=== PATIENT | female | born 1975 | race Caucasian/White ===

== ENCOUNTER 2024-10-02 08:26 | Inpatient (IN) | payer MEDICAID, OTHER ==
[~2024-10-02] VITALS: Ht 165.1 cm; Wt 128.4 kg
--- NOTE | 2024-10-02 09:58 | ED.PDOC ---
History of Present Illness HPI Comments 48-year-old female with PMHx HIV, HTN, CKF (3) presents with a chief complaint of cough x 2 months. Patient reports that she has had a persistent cough for the past x 2 months, and did not see a physician in that time due to being in halfway. Patient reports that in halfway she was only given cough drops for her cough, but not an evaluation. No other symptoms or modifying factors present at this time. 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 AND ROLLING SUPERVISOR Hx Family History Family History: Reviewed,noncontributory to illness Social History Smoker: Non-Smoker Alcohol: Denies ETOH Use Drugs: Denies Drug Use Lives In: Home Constitutional: denies: chills, diaphoresis, fatigue, fever, malaise, sweats, weakness, others EENTM: denies: blurred vision, double vision, ear bleeding, ear discharge, ear drainage, ear pain, ear ringing, eye pain, eye redness, hearing loss, mouth pain, mouth swelling, nasal discharge, nose bleeding, nose congestion, nose pain, photophobia, tearing, throat pain, throat swelling, voice changes, others Respiratory: reports: cough; denies: hemoptysis, orthopnea, SOB at rest, shortness of breath, SOB with excertion, stridor, wheezing, others Cardiovascular: denies: chest pain, dizzy spells, diaphoresis, Dyspnea on exertion, edema, irregular heart beat, left arm pain, lightheadedness, palpitations, PND, syncope, others Gastrointestinal: denies: abdomen distended, abdominal pain, blood streaked bowels, constipated, diarrhea, dysphagia, difficulty swallowing, hematemesis, melena, nausea, poor appetite, poor fluid intake, rectal bleeding, rectal pain, vomiting, others Genitourinary: denies: abnormal vagina bleeding, burning, dyspareunia, dysuria, flank pain, frequency, hematuria, incontinence, pain, , vagina discharge, urgency, others Neurological: denies: dizziness, fainting, headache, left sided numbness, left sided weakness, numbness, paresthesia, pre-existing deficit, right sided numbness, right sided weakness, seizure, speech problems, tingling, tremors, weakness, others Musculoskeletal: denies: back pain, gout, joint pain, joint swelling, muscle pain, muscle stiffness, neck pain, others Integumetry: denies: bruises, change in color, change in hair/nails, dryness, laceration, lesions, lumps, rash, wounds, others Allergic/Immunocompromised: denies: Difficulty Healing, Frequent Infections, Hives, Itching, others Hematologic/Lymphatic: denies: anemia, blood clots, easy bleeding, easy bruising, swollen glands, others Endocrine: denies: excessive hunger, excessive sweating, excessive thirst, excessive urination, flushing, intolerance to cold, intolerance to heat, unexplained weight gain, unexplained weight loss, others Psychiatric: denies: anxiety, bipolar disorder, depression, hopeless, panic disorder, schizophrenia, sleepless, suicidal, others All Other Systems: Reviewed and Negative Physical Exam General Appearance: Moderate Distress, Obese HEENT: Normal ENT Inspection, Pharynx Normal, TMs Normal Neck: Full Range of Motion, Non-Tender, Normal, Normal Inspection Respiratory: Chest Non-Tender, Lungs Clear, No Accessory Muscle Use, No Respiratory Distress, Normal Breath Sounds Cardiovascular: No Edema, No JVD, No Murmur, No Gallop, Tachycardia Breast Exam: Deferred Gastrointestinal: No Organomegaly, Non Tender, No Pulsatile Mass, Normal Bowel Sounds, Soft Genitalia: Deferred Pelvic: Deferred Rectal: Deferred Extremities: No calf tenderness, Normal capillary refill, Pedal edema Musculoskeletal : Apperance: Normal 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 Was a procedure done?: No Differential Dx Considerations may include: PE, generalized weakness, dehydration, pneumonia X-Ray, Labs, Meds, VS Vital Signs Date Time Temp Pulse Resp B/P (MAP) Pulse Ox O2 Delivery O2 Flow Rate FiO2 10/02/24 09:23 70 10/02/24 09:23 98.9 70 16 138/92 (107) 97 98.9 10/02/24 08:52 97.6 83 16 158/98 (118) 97 Lab Test 10/02/24 09:50 Range/Units White Blood Count 9.3 4.4-10.8 10^3/uL Red Blood Count 4.25 4.0-5.20 10^6/uL Hemoglobin 10.8 L 12.2-16.2 g/dL Hematocrit 33.0 L 36.0-46.0 % Mean Corpuscular Volume 77.8 L 80.0-100.0 fL Mean Corpuscular Hemoglobin 25.4 L 28.0-32.0 pg Mean Corpuscular Hemoglobin Concent 32.7 32.0-36.0 g/dL Red Cell Distribution Width 18.6 H 11.8-14.3 % Platelet Count 314 140-450 10^3/uL Mean Platelet Volume 8.2 6.9-10.8 fL Neutrophils (%) (Auto) 65.7 37.0-80.0 % Lymphocytes (%) (Auto) 20.0 10.0-50.0 % Monocytes (%) (Auto) 10.8 0.0-12.0 % Eosinophils (%) (Auto) 2.8 0.0-7.0 % Basophils (%) (Auto) 0.7 0.0-2.0 % Neutrophils # (Auto) 6.1 1.6-8.6 10 ^3/uL Lymphocytes # (Auto) 1.9 0.4-5.4 10 ^3/uL Monocytes # (Auto) 1.0 0-1.3 10 ^3/uL Eosinophils # (Auto) 0.3 0-0.8 10 ^3/uL Basophils # (Auto) 0.1 0-0.2 10 ^3/uL Nucleated Red Blood Cells 0.0 % D-Dimer, Quantitative 4.09 H 0.0-0.49 mg/L FEU Sodium Level 139 136-145 mmol/L Potassium Level 4.6 3.5-5.1 mmol/L Chloride Level 106 98-107 mmol/L Carbon Dioxide Level 25 20-31 mmol/L Anion Gap 8 5-15 Blood Urea Nitrogen 13 9-23 mg/dL Creatinine 1.08 H 0.550-1.02 mg/dL Glomerular Filtration Rate Calc 63 >90 mL/min BUN/Creatinine Ratio 12.0 10.0-20.0 Serum Glucose 87 74-106 mg/dL Calcium Level 9.5 8.7-10.4 mg/dL Total Bilirubin 0.7 0.2-1.0 mg/dL Aspartate Amino Transferase (AST) 13 13-40 U/L Alanine Aminotransferase (ALT) 14 7-40 U/L Alkaline Phosphatase 83 46-116 U/L Troponin I High Sensitivity < 3 L </=34 ng/L B-Type Natriuretic Peptide 22.67 0-100 pg/mL Total Protein 6.8 5.7-8.2 g/dL Albumin 4.1 3.2-4.8 g/dL IV Hep-Lock was established The CBC shows anemia with a hemoglobin of 10.8 and hematocrit of 33 The chemistry panel shows a creatinine of 1.08 The D-dimer is elevated at 4.09 An EKG was ordered The troponin level and BNP are within normal limits We are ordering a CT scan of the chest to rule out PE At this time the patient will be admitted to the hospitalist A cardiology consult will be obtained. At this time we can not rule out a pulmonary embolus Images Reviewed?: Images reviewed and evaluated by me Time of 1ST Reevaluation: 10:12 Reevaluation 1ST: Unchanged Patient Education/Counseling: Diagnosis, Treatment, Prognosis Family Education/Counseling: No Family Present Departure 1 Departure Time of Disposition: 11:00 Impression: Primary Impression: Acute chest pain Additional Impression: Elevated d-dimer Disposition: ADMITTED INPATIENT Admit to: [facility] Condition: Fair Critical Care Note Critical Care Time?: Yes (35 min-critical care time only) Stability Stability form required: Yes Unstable for transfer: Telemetry monitoring (Telemetry monitoring required), ED Physician Assesment (Clinical assesment) Heart Score Heart Score: Heart Score Response (Comments) Value History Moderate Suspicious 1 EKG Repolarization Disturb 1 Age 45-64 1 Risk Factors >3 or Hx ASHD 2 Troponin Normal limit 0 Total 5 I personally scribed for MARLINE DOLL MD ([email or web address]) on 10/02/24 at 09:58. Electronically submitted by Herbert Cody ([email or web address]). MARLINE DOLL MD Oct 02, 2024 09:58
[2024-10-02 10:05] LABS: Basophils # (auto) 0.1 10 ^3/uL (0-0.2); Basophils % (auto) 0.7 % (0.0-2.0); Eosinophils # (auto) 0.3 10 ^3/uL (0-0.8); Eosinophils % (auto) 2.8 % (0.0-7.0); Hemoglobin 10.8 g/dL (12.2-16.2); Lymphocytes # (auto) 1.9 10 ^3/uL (0.4-5.4); Mean Corpuscular Hemoglobin 25.4 pg (28.0-32.0); Mean Corpuscular Hgb Conc. 32.7 g/dL (32.0-36.0); Mean Corpuscular Volume 77.8 fL (80.0-100.0); Monocytes % (auto) 10.8 % (0.0-12.0); Neutrophils # (auto) 6.1 10 ^3/uL (1.6-8.6); Neutrophils % (auto) 65.7 % (37.0-80.0); Platelet Count (auto) 314 10^3/uL (140-450); Red Blood Cells 4.25 10^6/uL (4.0-5.20); Red Cell Distribution Width 18.6 % (11.8-14.3); White Blood Cell 9.3 10^3/uL (4.4-10.8)
--- NOTE | 2024-10-02 10:16 | DVH ---
CHEST RADIOGRAPH Indication: sob Technique: Single frontal view of the chest was obtained Comparison: None FINDINGS: Lines and Tubes: None Lungs: No focal consolidation. Pleura: No effusion. No pneumothorax. Cardiomediastinal contours: Unremarkable Bones: No acute osseous abnormality. IMPRESSION: No acute cardiopulmonary disease.
[2024-10-02 10:27] LABS: Alanine Aminotransferase 14 U/L (7-40); Albumin 4.1 g/dL (3.2-4.8); Alkaline Phosphatase 83 U/L (46-116); Anion Gap 8 (5-15); Aspartate Aminotransferase 13 U/L (13-40); Blood Urea Nitrogen 13 mg/dL (9-23); Calcium 9.5 mg/dL (8.7-10.4); Carbon Dioxide 25 mmol/L (20-31); Chloride 106 mmol/L (98-107); Glucose 87 mg/dL (74-106); Potassium 4.6 mmol/L (3.5-5.1); Sodium 139 mmol/L (136-145)
[2024-10-02 10:28] LABS: Bilirubin, Total 0.7 mg/dL (0.2-1.0); Total Protein 6.8 g/dL (5.7-8.2)
[2024-10-02 11:33] LABS: Urine Bacteria None Seen /hpf (None Seen); Urine WBC None Seen /hpf (0 - 5)
--- NOTE | 2024-10-02 11:50 | DVH ---
CTA Chest with intravenous contrast INDICATION: cp COMPARISON: None TECHNIQUE: Multidetector spiral CTA of the chest was performed of the chest with intravenous contrast . PULMONARY ANGIOGRAPHY PROTOCOL was utilized using a bolus-tracking technique centered on the main p ulmonary artery. Axial, coronal and sagittal multiplanar and MIP reformats were performed. CONTRAST: Type of contrast: Omni 350 Contrast injected: 100 ml Radiation dose : Chest: CTDI volume is 50 mGy. Dose-length product is 1062 mGy*cm The dose indicators for CT are the volume computed Tomography (CT) dose Index (CTDIvol) and the dose Length product (DLP), and are measured in units of mGy and mGy-cm, respectively. These indicators are not patient dose, but values generated from the CT scanner acquisition factors. The report includes radiation exposure data for exposures received during this examination. Findings: Limited by poor opacification of the pulmonary arteries. Pulmonary artery: Suspect mixing artifact in the main left pulmonary artery. No definite acute pulmonary embolus. Lower neck: Normal thyroid. Lungs: No focal consolidation, pleural effusion or pneumothorax. Heart/Vascular Structures: Normal heart size. No pericardial effusion. Lymph Nodes: No adenopathy Pleura: No pleural effusion or significant pneumothorax. Musculoskeletal: No acute osseous abnormality. Soft tissues: Normal. Upper abdomen: Limited portions of the upper abdomen are unremarkable. IMPRESSION: 1. .Limited exam. Poor contrast opacification of the pulmonary arteries. Suspect mixing artifact in the left main pulmonary artery however a pulmonary embolus is not completely excluded. If there is hi gh clinical concern consider repeat exam or further evaluation with V/Q scan. 2. No acute thoracic finding. HS:Y
[2024-10-02 11:52] LABS: Urine Blood Negative /uL (Negative); Urine Clarity Clear (Clear); Urine Color Yellow (Yellow); Urine Mucus FEW (None Seen); Urine Protein, UAD TRACE (Negative); Urine Specific Gravity 1.023 (1.001-1.035); Urine Urobilinogen Normal (Negative)
[2024-10-02] MEDS ORDERED: ONDANSETRON HCL 4 MG/2 ML VIAL IV PRN (14:45)
--- NOTE | 2024-10-02 15:29 | DVHHP2 ---
History of Present Illness Reason for Visit: Acute chest pain History of Present Illness The patient is a 48-year-old female with past medical history of HIV, CKF, and hypertension who presented to [facility] ED with complaint of chest pain. Patient reports symptoms progressively get worse with persistent cough, s hortness of breaths, getting worse that prompted this visit. Patient reports she is currently on state probation with ankle monitor accompanied by her mother. Patient was seen and evaluated in the ED, laboratory data shows WBC 9.3, platelets 314, sodium 139, potassium 4.6, BUN 13, creatinine 1.08, glucose 87, BNP 22.67, D-dimer 4.09, troponin 3, blood pressure 158/98, heart rate 70, temperature 98 point 9 F, O2 saturation 97% on room air. CT Angiography revealing mixing artifact in the left main pulmonary artery however a pulmonary embolus is not completely excluded. Please see medication orders section in the computer. On my assessment, patient denied chest pain at this moment, no headache, no dizziness, no diaphoresis, no palpitation, no shortness of breath, no nausea, no vomiting, no fever, no chills. Patient was admitted for further evaluation and medical management. Past Medical History CKF(3), HIV, HTN Past Surgical History Bilateral hip repair, Back surgery Family History Reviewed, noncontributory to the management of this case. Past Social History The patient lives at home, denies smoking, alcohol or illicit drugs abuse. Review of Systems Constitutional: Yes: Weakness; No: Fever, Chills, Sweats, Malaise, Other Eyes: No: Pain, Vision change, Conjunctivae inflammation, Eyelid inflammation, Other, Redness ENT: No: Ear pain, Ear discharge, Nose pain, Nose discharge, Nose congestion, Mouth pain, Mouth swelling, Throat pain, Throat swelling, Other Respiratory: Cough, Shortness of breath; No: Dry, SOB with excertion, Wheezing, Hemoptysis, Pleuritic Pain, Sputum, Wheezing, Other Cardiovascular: Chest Pain; No: Palpitations, Orthopnea, Paroxysmal Noc. Dyspnea, Edema, Lt Headedness, Other Gastrointestinal: No: Nausea, Vomiting, Abdominal Pain, Diarrhea, Constipation, Melena, Hematochezia, Other Genitourinary: No Dysuria, No Frequency, No Incontinence, No Hematuria, No Retention, No Other Musculoskeletal: No: other, neck pain, shoulder pain, arm pain, back pain, hand pain, leg pain, foot pain Skin: No: Rash, Lesions, Jaundice, Bruising, Other Neurological: No: Weakness, Numbness, Incoordination, Change in speech, Confusion, Seizures, Other Allergies: Coded Allergies: Penicillins (Verified Allergy, Unknown, 10/02/24) Medications Current Medications Medications Dose Ordered Sig/[place] Route Start Time Stop Time Status Last Admin Dose Admin Sodium Chloride 1,000 ml @ 60 mls/hr [id number] IV 10/02/24 14:45 Acetaminophen/ Hydrocodone Bitart 1 tab Q4HP PRN PO 10/02/24 14:45 Ondansetron HCl 4 mg Q4HP PRN IV 10/02/24 14:45 Docusate Sodium 100 mg BIDPRN PRN PO 10/02/24 14:45 Enoxaparin Sodium 40 mg DAILY SC 10/03/24 10:00 Acetaminophen 650 mg Q6HP PRN PO 10/02/24 14:45 Exam Vital Signs Vital Signs Date Time Temp Pulse Resp B/P (MAP) Pulse Ox O2 Delivery O2 Flow Rate FiO2 10/02/24 09:23 70 10/02/24 09:23 98.9 16 138/92 (107) 97 98.9 General Appearance: Alert, Oriented X3, Cooperative, No acute distress HEENT: Atraumatic, PERRLA, EOMI, Mucous membr. moist/pink Respiratory: Clear to auscultation, Normal air movement Cardiovascular: Regular rate, Normal S1, Normal S2, No murmurs Abdominal: Normal bowel sounds, Soft, No tenderness, No hepatospenomegaly, No masses Extremities: No clubbing, No cyanosis, No edema, Normal pulses, No tenderness/swelling Skin: No rashes, No breakdown, No significant lesion Neuro: Normal speech, Normal tone, Sensation intact, Cranial nerves 3-12 NL, Reflexes 2+, Other (Generalized weakness) Psych/Mental Status: Mental status NL, Mood NL Labs/Xrays Labs Test 10/02/24 11:00 10/02/24 10:52 10/02/24 09:50 Range/Units Urine Color Yellow Yellow Urine Clarity Clear Clear Urine pH 6.0 5.0-9.0 Urine Specific [place] 1.023 1.001-1.035 Urine Protein Trace H Negative Urine Ketones Negative Negative Urine Blood Negative Negative /uL Urine Nitrite Negative Negative Urine Bilirubin Negative Negative Urine Urobilinogen Normal Negative mg/dL Urine Leukocyte Esterase Negative Negative /uL Urine RBC 1 0 - 4 /hpf Urine WBC None seen 0 - 5 /hpf Urine Squamous Epithelial Cells Few <5 /hpf Urine Bacteria None seen None Seen /hpf Urine Mucus Few None Seen Urine Glucose Normal Normal mg/dL Troponin I High Sensitivity < 3 L </=34 ng/L White Blood Count 9.3 4.4-10.8 10^3/uL Red Blood Count 4.25 4.0-5.20 10^6/uL Hemoglobin 10.8 L 12.2-16.2 g/dL Hematocrit 33.0 L 36.0-46.0 % Mean Corpuscular Volume 77.8 L 80.0-100.0 fL Mean Corpuscular Hemoglobin 25.4 L 28.0-32.0 pg Mean Corpuscular Hemoglobin Concent 32.7 32.0-36.0 g/dL Red Cell Distribution Width 18.6 H 11.8-14.3 % Platelet Count 314 140-450 10^3/uL Mean Platelet Volume 8.2 6.9-10.8 fL Neutrophils (%) (Auto) 65.7 37.0-80.0 % Lymphocytes (%) (Auto) 20.0 10.0-50.0 % Monocytes (%) (Auto) 10.8 0.0-12.0 % Eosinophils (%) (Auto) 2.8 0.0-7.0 % Basophils (%) (Auto) 0.7 0.0-2.0 % Neutrophils # (Auto) 6.1 1.6-8.6 10 ^3/uL Lymphocytes # (Auto) 1.9 0.4-5.4 10 ^3/uL Monocytes # (Auto) 1.0 0-1.3 10 ^3/uL Eosinophils # (Auto) 0.3 0-0.8 10 ^3/uL Basophils # (Auto) 0.1 0-0.2 10 ^3/uL Nucleated Red Blood Cells 0.0 % D-Dimer, Quantitative 4.09 H 0.0-0.49 mg/L FEU Sodium Level 139 136-145 mmol/L Potassium Level 4.6 3.5-5.1 mmol/L Chloride Level 106 98-107 mmol/L Carbon Dioxide Level 25 20-31 mmol/L Anion Gap 8 5-15 Blood Urea Nitrogen 13 9-23 mg/dL Creatinine 1.08 H 0.550-1.02 mg/dL Glomerular Filtration Rate Calc 63 >90 mL/min BUN/Creatinine Ratio 12.0 10.0-20.0 Serum Glucose 87 74-106 mg/dL Calcium Level 9.5 8.7-10.4 mg/dL Total Bilirubin 0.7 0.2-1.0 mg/dL Aspartate Amino Transferase (AST) 13 13-40 U/L Alanine Aminotransferase (ALT) 14 7-40 U/L Alkaline Phosphatase 83 46-116 U/L B-Type Natriuretic Peptide 22.67 0-100 pg/mL Total Protein 6.8 5.7-8.2 g/dL Albumin 4.1 3.2-4.8 g/dL PATIENT: ELKE MORILLO ACCT: [id number] UNIT: [id number] : 1975 LOC: ER ROOM / BED: / AGE / SEX: 48 / F ADM STATUS: REG ER SERVICE [id number] ORDERING PHYSICIAN: MARLINE DOLL MD PROCEDURE(s): CTACH - CT ANGIO CHEST CONTRAST REASON: cp ORDER NUMBER(s): [id number], ACCESSION NUMBER(s): [id number] CTA Chest with intravenous contrast INDICATION: cp COMPARISON: None TECHNIQUE: Multidetector spiral CTA of the chest was performed of the chest with intravenous contrast. PULMONARY ANGIOGRAPHY PROTOCOL was utilized using a bolus- tracking technique centered on the main pulmonary artery. Axial, coronal and sagittal multiplanar and MIP reformats were performed. CONTRAST: Type of contrast: Omni 350 Contrast injected: 100 ml Radiation dose: Chest: CTDI volume is 50 mGy. Dose-length product is 1062 mGy*cm The dose indicators for CT are the volume computed Tomography (CT) dose Index (CTDIvol) and the dose Length product (DLP), and are measured in units of mGy and mGy-cm, respectively. These indicators are not patient dose, but values generated from the CT scanner acquisition factors. The report includes radiation exposure data for exposures received during this examination. Findings: Limited by poor opacification of the pulmonary arteries. Pulmonary artery: Suspect mixing artifact in the main left pulmonary artery. No definite acute pulmonary embolus. Lower neck: Normal thyroid. Lungs: No focal consolidation, pleural effusion or pneumothorax. Heart/Vascular Structures: Normal heart size. No pericardial effusion. Lymph Nodes: No adenopathy Pleura: No pleural effusion or significant pneumothorax. Musculoskeletal: No acute osseous abnormality. Soft tissues: Normal. Upper abdomen: Limited portions of the upper abdomen are unremarkable. IMPRESSION: 1. Limited exam. Poor contrast opacification of the pulmonary arteries. Suspect mixing artifact in the left main pulmonary artery however a pulmonary embolus is not completely excluded. If there is high clinical concern consider repeat exam or further evaluation with V/Q scan. 2. No acute thoracic finding. ORDERING PHYSICIAN: MARLINE DOLL MD PROCEDURE(s): CXRP - CHEST PORTABLE REASON: sob ORDER NUMBER(s): [id number], ACCESSION NUMBER(s): [id number] CHEST RADIOGRAPH Indication: sob Technique: Single frontal view of the chest was obtained Comparison: None FINDINGS: Lines and Tubes: None Lungs: No focal consolidation. Pleura: No effusion. No pneumothorax. Cardiomediastinal contours: Unremarkable Bones: No acute osseous abnormality. IMPRESSION: No acute cardiopulmonary disease. Assessment/Plan Assessment/Plan Acute chest pain Elevated d-dimer Shortness of breaths Plan 1. Admit to telemetry unit 2. Breathing treatment 3. Pain control management 4. Management of fluids and electrolytes 5. Consultation for hospitalist 6. Diagnostic tests V/Q scan 7. DVT prophylaxis-on Lovenox 8. Repeat labs CBC, CMP in a.m. 9. Continue with current medical management 10. Treatment plan discussed with patient and RN. Patient verbalized understanding. Plan discussed with: Patient, Other (RN) My Orders Orders - ZENOBIA BLACKMON DNP Procedure Category Date Status Time Allergies HEYDI 10/02/24 In Process 14:44 Code Status CODE 10/02/24 Transmitted 14:44 Sodium Chloride 0.9% PHA 10/02/24 In Process 14:45 Oxygen Per Hour RT 10/02/24 Transmitted 14:44 Hydrocodone-Acet PHA 10/02/24 In Process 5/325mg Tab ([place] 14:45 Ondansetron Hcl PHA 10/02/24 In Process (Zofran) 14:45 Docusate Sodium PHA 10/02/24 In Process Capsule (Colace 14:45 Enoxaparin Sodium PHA 11/19/24 In Process (Lovenox) 10:00 Complete Blood Count LAB 10/03/24 Verified 04:00 Comprehensive LAB 10/03/24 Verified Metabolic Panel 04:00 Cardiac DIET 10/02/24 Transmitted Diet-2gna,Lofat,Lochol Dinner Condition: Serious HEYDI 10/02/24 In Process 14:44 Acetaminophen Tablet PHA 10/02/24 In Process (Tylenol Tablet) 14:45 Bedrest With Bathroom HEYDI 10/02/24 In Process Privileg 14:44 Sequential HEYDI 10/02/24 In Process Compression Device Problem List: (1) Acute chest pain (2) Elevated d-dimer (3) Shortness of breath Date of Service: Oct 02, 2024 Billing Provider: ZENOBIA BLACKMON DNP Common Visit Codes: [id number] INP/OBS CARE (HIGH) ZENOBIA BLACKMON DNP Oct 02, 2024 15:29
[2024-10-02] MEDS ORDERED: MORPHINE SULFATE INJ 2 MG/ml SYRG IV PRN (15:30)
[2024-10-02] MEDS ORDERED: NITROGLYCERIN 0.4 MG SL TAB SL PRN (15:30)
[2024-10-02 17:31] VITALS: BP 128/95; PULSE 84; RESP 18; TEMP 98; O2SAT 99
[2024-10-02] MEDS: SODIUM CHLORIDE 0.9% 1,000 ML IV SCH (17:33)
[2024-10-02] MEDS: ENOXAPARIN SOD 40 MG/0.4 ML SYRINGE SC ONE (17:47)
[2024-10-02] MEDS: HYDROcodone-ACET 5/325MG TAB PO PRN (17:58)
[2024-10-02 21:58] VITALS: PULSE 86; RESP 16; O2SAT 96
[2024-10-02 22:27] VITALS: BP 137/82; PULSE 85; RESP 19; TEMP 98.2; O2SAT 95
[2024-10-02] MEDS ORDERED: B-CO-5 PO (23:10)
[2024-10-02] MEDS ORDERED: METO-159 PO (23:10)
[2024-10-02] MEDS ORDERED: LEVE500T40 PO (23:10)
[2024-10-02] MEDS ORDERED: FOLI-119 PO (23:10)
[2024-10-02] MEDS ORDERED: [UNRECOGNIZED DRUG - CODE] PO (23:10)
[2024-10-02] MEDS ORDERED: ACYC200C22 PO (23:10)
[2024-10-02] MEDS ORDERED: AMLO1TAB22 PO (23:10)
[2024-10-02] MEDS ORDERED: CABO1SUS IM (23:35)
[2024-10-03] VITALS (7 sets, daily range): BP systolic 121–153; BP diastolic 83–90; PULSE 63–90; RESP 17–19; TEMP 98.1–98.5; O2SAT 94–96
[2024-10-03 07:12] LABS: Alanine Aminotransferase 10 U/L (7-40); Alkaline Phosphatase 71 U/L (46-116); Anion Gap 5 (5-15); Calcium 9.6 mg/dL (8.7-10.4); Carbon Dioxide 27 mmol/L (20-31); Chloride 106 mmol/L (98-107); Glucose 88 mg/dL (74-106); Potassium 4.6 mmol/L (3.5-5.1); Sodium 138 mmol/L (136-145)
[2024-10-03 07:13] LABS: BUN/Creatinine Ratio 10.5 (10.0-20.0); Blood Urea Nitrogen 12 mg/dL (9-23)
[2024-10-03 07:14] LABS: Albumin 3.8 g/dL (3.2-4.8); Aspartate Aminotransferase 8 U/L (13-40)
[2024-10-03 07:15] LABS: Bilirubin, Total 0.5 mg/dL (0.2-1.0); Total Protein 6.5 g/dL (5.7-8.2)
[2024-10-03 07:28] LABS: Basophils # (auto) 0 10 ^3/uL (0-0.2); Basophils % (auto) 0.5 % (0.0-2.0); Hemoglobin 9.8 g/dL (12.2-16.2); Monocytes # (auto) 0.8 10 ^3/uL (0-1.3); Monocytes % (auto) 12.5 % (0.0-12.0); Neutrophils # (auto) 4.1 10 ^3/uL (1.6-8.6); White Blood Cell 6.5 10^3/uL (4.4-10.8)
[2024-10-03 07:31] LABS: Eosinophils # (auto) 0.3 10 ^3/uL (0-0.8); Hematocrit 30.1 % (36.0-46.0); Lymphocytes # (auto) 1.3 10 ^3/uL (0.4-5.4); Lymphocytes % (auto) 19.8 % (10.0-50.0); Mean Corpuscular Hemoglobin 25.6 pg (28.0-32.0); Mean Corpuscular Hgb Conc. 32.5 g/dL (32.0-36.0); Mean Corpuscular Volume 78.8 fL (80.0-100.0); Neutrophils % (auto) 63.2 % (37.0-80.0); Platelet Count (auto) 283 10^3/uL (140-450); Red Blood Cells 3.82 10^6/uL (4.0-5.20); Red Cell Distribution Width 18.9 % (11.8-14.3)
[2024-10-03] MEDS: ENOXAPARIN SOD 40 MG/0.4 ML SYRINGE SC SCH (10:29)
--- NOTE | 2024-10-03 14:10 | DVH ---
NUCLEAR MEDICINE VENTILATION/PERFUSION LUNG SCAN. INDICATION: PULMONARY EMBOLISM TECHNIQUE: Following intravenous demonstration of 6 millicuries of technetium 99m MAA, and inhalati on of 40 mCi of Tc 99m DTPA scintigrams were obtained in multiple projections of the lungs. FINDINGS: There is normal uptake of radionuclide on both the ventilation and perfusion portions of the examinat ion. No mismatched perfusion defects are demonstrated. Uptake is normally homogeneous. IMPRESSION: Low probability for PE.
[2024-10-03] MEDS: cefTRIAXone 1GM/50ML D5W 50 ML IV ONE (14:15)
[2024-10-03] MEDS: AZITHROMYCIN 500MG/ 250ML 250 ML IV ONE (14:15)
--- NOTE | 2024-10-03 14:24 | DVHPN2 ---
Subjective - 10/03 - she has mild distress from coughing. but overall appears tolerating cough and her pains well.. multiple issues needing outpatient appnts (community pharmacist, ortho, pain specialist?). her cough is ongoing since group home. she relased aug 2024 (approx 1month ago). could be exposed to rst organisms, could be health risk. gets tachycardic with coughing. has complains of uterine or vaginal prolapse. complains of BL hip dislocations with hx BL hip CINTHIA. hx hiv on monthly injn. most issues are chronic. Reviewed: H&P Changes from previous H/P or p: No Changes General: Per HPI Objective Vitals Vital Signs Date Time Temp Pulse Resp B/P (MAP) Pulse Ox O2 Delivery O2 Flow Rate FiO2 10/03/24 13:00 98.1 79 17 142/85 (104) 96 98.1 10/02/24 22:27 Room Air* 0 21 Intake/Output Intake and Output 10/03/24 07:00 Intake Total 720 ml Balance 720 ml Intake Oral 600 ml IV Total 120 ml # Voids 5 Exam GEN: Healthy appearing, well-developed, NAD. HEENT: NC/AT; MMM. PERRLA CV: tachycardia , no m/r/g. LUNGS: CTAB, no w/r/c. ABD: Soft, NT/ND, NBS, no masses or organomegaly. : N/A EXT: No clubbing, cyanosis, or edema. Skin warm, well perfused. No skin rashes or abnormal lesions. NEURO: Ambulating with no limitations. No focal deficits. Medications Current Medications Medications Dose Ordered Sig/[place] Route Start Time Stop Time Status Last Admin Dose Admin Sodium Chloride 1,000 ml @ 60 mls/hr [id number] IV 10/02/24 14:45 10/02/24 17:33 60 MLS/HR Acetaminophen/ Hydrocodone Bitart 1 tab Q4HP PRN PO 10/02/24 14:45 10/03/24 04:15 1 TAB Ondansetron HCl 4 mg Q4HP PRN IV 10/02/24 14:45 Docusate Sodium 100 mg BIDPRN PRN PO 10/02/24 14:45 Enoxaparin Sodium 40 mg DAILY SC 10/03/24 10:00 10/03/24 10:29 40 MG Acetaminophen 650 mg Q6HP PRN PO 10/02/24 14:45 Nitroglycerin 0.4 mg Q5MINP PRN SL 10/02/24 15:30 Morphine Sulfate 2 mg Q30M PRN IV 10/02/24 15:30 Ceftriaxone Sodium 50 ml @ 100 mls/hr DAILY@09 IV 10/04/24 09:00 UNV Azithromycin 250 ml @ 125 mls/hr DAILY IV 10/04/24 10:00 UNV Laboratory Results Laboratory Tests 10/03/24 05:42 Chemistry Test 10/03/24 05:42 Albumin 3.8 g/dL (3.2-4.8) Calcium Level 9.6 mg/dL (8.7-10.4) Total Protein 6.5 g/dL (5.7-8.2) LFT Test 10/03/24 05:42 Alanine Aminotransferase (ALT) 10 U/L (7-40) Alkaline Phosphatase 71 U/L (46-116) Aspartate Amino Transferase (AST) 8 U/L (13-40) L Total Bilirubin 0.5 mg/dL (0.2-1.0) Urinalysis Test 10/02/24 11:00 Urine Color Yellow (Yellow) Urine Clarity Clear (Clear) Urine pH 6.0 (5.0-9.0) Urine Specific [place] 1.023 (1.001-1.035) Urine Protein Trace (Negative) H Urine Ketones Negative (Negative) Urine Blood Negative /uL (Negative) Urine Nitrite Negative (Negative) Urine Bilirubin Negative (Negative) Urine Urobilinogen Normal mg/dL (Negative) Urine Leukocyte Esterase Negative /uL (Negative) Urine RBC 1 /hpf (0 - 4) Urine WBC None seen /hpf (0 - 5) Urine Squamous Epithelial Cells Few /hpf (<5) Urine Bacteria None seen /hpf (None Seen) Urine Mucus Few (None Seen) Urine Glucose Normal mg/dL (Normal) Microbiology Microbiology Date/Time Source Procedure Growth Status 10/03/24 00:58 Nose MRSA Screen - Final Complete Labs and/or images reviewed: Labs reviewed by me, Image(s) reviewed by me Assessment/Plan Assessment/Plan - 10/03 - she has mild distress from coughing. but overall appears tolerating cough and her pains well.. multiple issues needing outpatient appnts (community pharmacist, ortho, pain specialist?). her cough is ongoing since group home. she relased aug 2024 (approx 1month ago). could be exposed to rst organisms, could be health risk. gets tachycardic with coughing. has complains of uterine or vaginal prolapse. complains of BL hip dislocations with hx BL hip CINTHIA. hx hiv on monthly injn. most issues are chronic. cough SOB tachycardia PNA likely PE , need rule-out TB ruleout - no hypoxia. ddimer high - CTA 1st nondiagnostic . repeat done with VQ scan pending - no wbc elevation. cough is concerning given she was recent dc from group home (was there 30 yrs, dc aug 2024). will test quant gold. - start ctx/zpac - quant gold pending - isolation - sputum cx pend chest pain - Tn neg, bnp nl. cxr neg. - chest pain likely 2/2 cough. - keep tele. BABS (?on CKD) - cr 1.08 to 1.14 day 1 joint replacement hx BL hips recurrent dislocations - will defer to outpt. referral to [place]o [place]. hx HIV - ID consulted. she has failed biktarvy (ortho/joint issues?), wants to continue IM q8wk injn (cabenuva?). defer to ID. - cd4 level pending diet regular dvt ppx - pt is OOB gi ppx - tolerationg diet med -tele Plan discussed with: Patient My Orders Orders - ABHINAV PEARSON MD Procedure Category Date Status Time Quantiferon-Tb Gold LAB 10/03/24 Logged 14:08 Isolation Order ORDERS 10/03/24 Transmitted 14:08 Ceftriaxone 1gm/50ml PHA 10/04/24 Logged D5w (Rocephin) 09:00 Ceftriaxone 1gm/50ml PHA 10/03/24 Logged D5w (Rocephin) 14:15 Azithromycin 500mg/ PHA 10/04/24 Logged 250ml (Zithromax 50 10:00 Azithromycin 500mg/ PHA 10/03/24 Logged 250ml (Zithromax 50 14:15 Respiratory Culture CHRISTO 10/03/24 Transmitted W/ Gs 14:11 * Coagulating Bath Operator Consultation CONS 10/03/24 Verified 14:11 Date of Service: Oct 03, 2024 Billing Provider: ABHINAV PEARSON MD Common Visit Codes: [id number] INP/OBS CARE(HIGH) ABHINAV PEARSON MD Oct 03, 2024 14:24
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
[2024-10-03] MEDS: ACETAMINOPHEN 325 MG TAB PO PRN (21:52)
[2024-10-04] VITALS (7 sets, daily range): BP systolic 109–147; BP diastolic 69–91; PULSE 63–100; RESP 17–19; TEMP 97.8–98.1; O2SAT 93–98
[2024-10-04] MEDS: cefTRIAXone 1GM/50ML D5W 50 ML IV SCH (09:12)
[2024-10-04] MEDS: AZITHROMYCIN 500MG/ 250ML 250 ML IV SCH (09:12)
[2024-10-04] MEDS: DOCUSATE SOD 100 MG CAP PO PRN (09:14)
[2024-10-04] MEDS ORDERED: PATIENTS OWN MEDICATION (Metoprolol Tartrate 100 MG) PO SCH (10:00)
[2024-10-04] MEDS ORDERED: ACYCLOVIR 400 MG PO SCH (10:00)
[2024-10-04] MEDS ORDERED: levETIRAcetam 500 MG TAB PO SCH (10:00)
[2024-10-04] MEDS ORDERED: PATIENTS OWN MEDICATION (B-Complex W/ C & Folic Acid (Rena-Vite) 1 TAB) PO SCH (10:00)
[2024-10-04] MEDS ORDERED: PATIENTS OWN MEDICATION (Folic Acid 1 MG) PO SCH (10:00)
[2024-10-04] MEDS: FOLIC ACID 1 MG TAB PO SCH (10:05)
[2024-10-04] MEDS: METOPROLOL TARTRATE 50 MG TAB PO SCH (10:06)
[2024-10-04] MEDS: B-COMPLEX W/ C & FOLIC ACID(NEPHROVITE TAB) PO SCH (10:06)
[2024-10-04] MEDS: CHOLECALCIFEROL (VITD3) 1,000UNIT=25mCg TAB PO SCH (10:07)
[2024-10-04] MEDS: ACYCLOVIR 400 MG TAB PO SCH (10:07)
[2024-10-04] MEDS: amLODIPine BESYLATE 5 MG TAB PO SCH (10:07)
[2024-10-04 10:59] LABS: Alkaline Phosphatase 75 U/L (46-116); Anion Gap 6 (5-15); Aspartate Aminotransferase 12 U/L (13-40); BUN/Creatinine Ratio 11.2 (10.0-20.0); Blood Urea Nitrogen 12 mg/dL (9-23); Calcium 9.8 mg/dL (8.7-10.4); Carbon Dioxide 28 mmol/L (20-31); Chloride 106 mmol/L (98-107); Glucose 94 mg/dL (74-106); Potassium 4.2 mmol/L (3.5-5.1); Sodium 140 mmol/L (136-145)
[2024-10-04 11:00] LABS: Alanine Aminotransferase < 9 U/L (7-40); Bilirubin, Total 0.4 mg/dL (0.2-1.0); Total Protein 6.9 g/dL (5.7-8.2)
[2024-10-04] MEDS: GABAPENTIN 400 MG CAP PO SCH (14:23)
--- NOTE | 2024-10-04 20:13 | DVHPN2 ---
Subjective - 10/03 - she has mild distress from coughing. but overall appears tolerating cough and her pains well.. multiple issues needing outpatient appnts (food service coordinator, ortho, pain specialist?). her cough is ongoing since longterm. she relased aug 2024 (approx 1month ago). could be exposed to rst organisms, could be health risk. gets tachycardic with coughing. has complains of uterine or vaginal prolapse. complains of BL hip dislocations with hx BL hip CINTHIA. hx hiv on monthly injn. most issues are chronic. - 10/04-V/Q scan negative yesterday, pending QuantiFERON gold. Continuing ceftriaxone/azithromycin, patient is improving. Pending food service coordinator, ID eval. Patient has headache and is asking for CT scan to get everything checked up while she is here ". No FND, no trauma to had; no inpatient indication for CT head, we will defer. Reviewed: H&P Changes from previous H/P or p: No Changes General: Per HPI Objective Vitals Vital Signs Date Time Temp Pulse Resp B/P (MAP) Pulse Ox O2 Delivery O2 Flow Rate FiO2 10/04/24 17:09 97.9 68 18 121/70 (87) 98 97.9 10/04/24 08:00 Room Air* 0 21 Intake/Output Intake and Output 10/04/24 07:00 Intake Total 1350 ml Balance 1350 ml Intake Oral 1200 ml IV Total 150 ml # Voids 9 Exam GEN: Healthy appearing, well-developed, NAD. HEENT: NC/AT; MMM. PERRLA CV: tachycardia , no m/r/g. LUNGS: CTAB, no w/r/c. ABD: Soft, NT/ND, NBS, no masses or organomegaly. : N/A EXT: No clubbing, cyanosis, or edema. Skin warm, well perfused. No skin rashes or abnormal lesions. NEURO: Ambulating with no limitations. No focal deficits. Medications Current Medications Medications Dose Ordered Sig/[place] Route Start Time Stop Time Status Last Admin Dose Admin Sodium Chloride 1,000 ml @ 60 mls/hr [id number] IV 10/02/24 14:45 10/02/24 17:33 60 MLS/HR Acetaminophen/ Hydrocodone Bitart 1 tab Q4HP PRN PO 10/02/24 14:45 10/03/24 18:26 1 TAB Ondansetron HCl 4 mg Q4HP PRN IV 10/02/24 14:45 Docusate Sodium 100 mg BIDPRN PRN PO 10/02/24 14:45 10/04/24 09:14 100 MG Enoxaparin Sodium 40 mg DAILY SC 10/03/24 10:00 10/04/24 09:14 40 MG Acetaminophen 650 mg Q6HP PRN PO 10/02/24 14:45 10/03/24 21:52 650 MG Nitroglycerin 0.4 mg Q5MINP PRN SL 10/02/24 15:30 Morphine Sulfate 2 mg Q30M PRN IV 10/02/24 15:30 Ceftriaxone Sodium 50 ml @ 100 mls/hr DAILY@09 IV 10/04/24 09:00 10/04/24 09:12 100 MLS/HR Azithromycin 250 ml @ 125 mls/hr DAILY IV 10/04/24 10:00 10/04/24 09:12 125 MLS/HR Amlodipine Besylate 5 mg DAILY PO 10/04/24 10:00 10/04/24 10:07 5 MG Cholecalciferol 2,000 unit DAILY PO 10/04/24 10:00 10/04/24 10:07 2,000 UNIT Patient Own Medication 400 mg BID PO 10/04/24 10:00 UNV Patient Own Medication 1 tab DAILY PO 10/04/24 10:00 UNV Patient Own Medication 1 mg DAILY PO 10/04/24 10:00 UNV Patient Own Medication 100 mg BID PO 10/04/24 10:00 UNV Acyclovir 400 mg BID PO 10/04/24 10:00 10/04/24 10:07 400 MG Folic Acid 1 mg DAILY PO 10/04/24 10:00 10/04/24 10:05 1 MG Metoprolol Tartrate 100 mg BID PO 10/04/24 10:00 10/04/24 10:06 100 MG Multivit/Ca Carb/ B Cmplx/FA/Prenat 1 tab DAILY PO 10/04/24 10:00 10/04/24 10:06 1 TAB Gabapentin 400 mg TID PO 10/04/24 14:00 10/04/24 14:23 400 MG Laboratory Results Laboratory Tests 10/04/24 10:31 Chemistry Test 10/04/24 10:31 Albumin 4.0 g/dL (3.2-4.8) Calcium Level 9.8 mg/dL (8.7-10.4) Total Protein 6.9 g/dL (5.7-8.2) LFT Test 10/04/24 10:31 Alanine Aminotransferase (ALT) < 9 U/L (7-40) Alkaline Phosphatase 75 U/L (46-116) Aspartate Amino Transferase (AST) 12 U/L (13-40) L Total Bilirubin 0.4 mg/dL (0.2-1.0) Urinalysis Test 10/02/24 11:00 Urine Color Yellow (Yellow) Urine Clarity Clear (Clear) Urine pH 6.0 (5.0-9.0) Urine Specific [place] 1.023 (1.001-1.035) Urine Protein Trace (Negative) H Urine Ketones Negative (Negative) Urine Blood Negative /uL (Negative) Urine Nitrite Negative (Negative) Urine Bilirubin Negative (Negative) Urine Urobilinogen Normal mg/dL (Negative) Urine Leukocyte Esterase Negative /uL (Negative) Urine RBC 1 /hpf (0 - 4) Urine WBC None seen /hpf (0 - 5) Urine Squamous Epithelial Cells Few /hpf (<5) Urine Bacteria None seen /hpf (None Seen) Urine Mucus Few (None Seen) Urine Glucose Normal mg/dL (Normal) Microbiology Microbiology Date/Time Source Procedure Growth Status 10/03/24 00:58 Nose MRSA Screen - Final Complete Labs and/or images reviewed: Labs reviewed by me, Image(s) reviewed by me Assessment/Plan Assessment/Plan - 10/03 - she has mild distress from coughing. but overall appears tolerating cough and her pains well.. multiple issues needing outpatient appnts (food service coordinator, ortho, pain specialist?). her cough is ongoing since longterm. she relased aug 2024 (approx 1month ago). could be exposed to rst organisms, could be health risk. gets tachycardic with coughing. has complains of uterine or vaginal prolapse. complains of BL hip dislocations with hx BL hip CINTHIA. hx hiv on monthly injn. most issues are chronic. 10/04-V/Q scan negative yesterday, pending QuantiFERON gold. Continuing ceftriaxone/azithromycin, patient is improving. Pending food service coordinator, ID eval. Patient has headache and is asking for CT scan to get everything checked up while she is here ". No FND, no trauma to had; no inpatient indication for CT head, we will defer. cough SOB tachycardia PNA likely PE , need rule-out TB ruleout - no hypoxia. ddimer high - CTA 1st nondiagnostic . repeat done with VQ scan pending - no wbc elevation. cough is concerning given she was recent dc from longterm (was there 30 yrs, dc aug 2024). will test quant gold. - start ctx/zpac - quant gold pending - isolation - sputum cx pend -patient is not coughing, no sputum sample yet chest pain - Tn neg, bnp nl. cxr neg. - chest pain likely 2/2 cough. - keep tele. BABS (?on CKD) - cr 1.08 to 1.14 day 1 BABS with creatinine downtrending joint replacement hx BL hips recurrent dislocations - will defer to outpt. referral to [place]o [place] hx HIV - ID consulted. she has failed biktarvy (ortho/joint issues?), wants to continue IM q8wk injn (cabenuva?). defer to ID. - cd4 level pending diet regular dvt ppx - pt is OOB gi ppx - tolerationg diet med -tele Plan discussed with: Patient My Orders Orders - ABHINAV PEARSON MD Procedure Category Date Status Time Amlodipine Tablet PHA 10/04/24 In Process (Norvasc Tablet) 10:00 Cholecalciferol PHA 10/04/24 In Process Tablet (Vitamin D3 10:00 Acyclovir Tablet PHA 10/04/24 In Process (Zovirax Tablet) 10:00 Folic Acid Tablet PHA 10/04/24 In Process 10:00 Metoprolol Tartrate PHA 10/04/24 In Process Tablet (Lopressor Ta 10:00 B-Complex W/ C & PHA 10/04/24 In Process Folic Tablet 10:00 Gabapentin Capsule PHA 10/04/24 In Process (Neurontin Capsule) 14:00 * Infectious [place]- CONS 10/04/24 Transmitted [place]a [place] 16:59 May Shower HEYDI 10/04/24 In Process 17:46 Date of Service: Oct 04, 2024 Billing Provider: ABHINAV PEARSON MD Common Visit Codes: [id number] INP/OBS CARE(HIGH) ABHINAV PEARSON MD Oct 04, 2024 20:13
--- NOTE | 2024-10-04 21:47 | DVHINCON2 ---
Date of service: Oct 04, 2024 Family History: Diabetes mellitus G8 FATHER Allergies: Coded Allergies: Penicillins (Verified Allergy, Unknown, 10/02/24) Home Meds Active Scripts Gabapentin (Gabapentin) 600 Mg Tab, 300 MG PO TID for 30 Days, #45 TAB 1 Refill Prov:ABHINAV PEARSON MD 10/05/24 Levofloxacin Hemihydrate (LEVAQUIN 500 MG) 500 Mg Tab, 750 MG PO DAILY for 7 Days, #11 TAB 0 Refills Prov:ABHINAV PEARSON MD 10/05/24 Reported Medications Cabotegravir & Rilpivirine (Cabenuva 600 & 900 mg/3Ml) 1 Flory Flory, 600.9 FLORY IM every 8 weeks for h.i.v, ML 10/02/24 Cholecalciferol (GNP VITAMIN D3 EXTRA STRE) 1,000 Unit Tab, 2000 UNIT PO DAILY, TAB 10/02/24 B-Complex W/ C & Folic Acid (Cindy-Hermelindo) Tab, 1 PO DAILY, TAB 10/02/24 Folic Acid (Folic Acid) 1 Mg Tab, 1 MG PO DAILY, MG 10/02/24 Amlodipine Besylate (Amlodipine Besylate) 5 Mg Tab, 5 MG PO DAILY, MG 10/02/24 Metoprolol Tartrate (Metoprolol Tartrate) 100 Mg Tab, 100 MG PO BID, MG 10/02/24 Discontinued Reported Medications Acyclovir (Acyclovir) 200 Mg Cap, 400 MG PO BID, TAB 10/02/24 Levetiracetam (Keppra) 500 Mg Tab, 500 MG PO BID, MG 10/02/24 Current Medications Current Medications Medications (Trade) Dose Ordered Sig/[place] Route PRN Reason Start Time Stop Time Status Last Admin Ceftriaxone Sodium 50 ml @ 100 mls/hr DAILY@09 IV 10/04/24 09:00 10/04/24 09:12 Azithromycin 250 ml @ 125 mls/hr DAILY IV 10/04/24 10:00 10/04/24 09:12 Amlodipine Besylate (Norvasc Tablet) 5 mg DAILY PO 10/04/24 10:00 10/04/24 10:07 Cholecalciferol (Vitamin D3 Tablet) 2,000 unit DAILY PO 10/04/24 10:00 10/04/24 10:07 Levetiracetam (Keppra Tablet) 500 mg BID PO 10/04/24 10:00 10/04/24 10:00 DC Patient Own Medication 400 mg BID PO 10/04/24 10:00 UNV Patient Own Medication 1 tab DAILY PO 10/04/24 10:00 UNV Patient Own Medication 1 mg DAILY PO 10/04/24 10:00 UNV Patient Own Medication 100 mg BID PO 10/04/24 10:00 UNV Acyclovir (Zovirax Tablet) 400 mg BID PO 10/04/24 10:00 10/04/24 10:07 Folic Acid 1 mg DAILY PO 10/04/24 10:00 10/04/24 10:05 Metoprolol Tartrate (Lopressor Tablet) 100 mg BID PO 10/04/24 10:00 10/04/24 10:06 Multivit/Ca Carb/ B Cmplx/FA/Prenat (Nephro-Hermelindo Tablet) 1 tab DAILY PO 10/04/24 10:00 10/04/24 10:06 Gabapentin (Neurontin Capsule) 400 mg TID PO 10/04/24 14:00 10/04/24 14:23 Vital Signs Vital Signs Date Time Temp Pulse Resp B/P (MAP) Pulse Ox O2 Delivery O2 Flow Rate FiO2 10/04/24 17:09 97.9 68 18 121/70 (87) 98 97.9 10/04/24 08:00 Room Air* 0 21 Labs/Diagnostic Data Labs Test 10/04/24 10:31 10/04/24 08:51 10/03/24 15:05 10/03/24 05:42 Range/Units Sodium Level 140 136-145 mmol/L Potassium Level 4.2 3.5-5.1 mmol/L Chloride Level 106 98-107 mmol/L Carbon Dioxide Level 28 20-31 mmol/L Anion Gap 6 5-15 Blood Urea Nitrogen 12 9-23 mg/dL Creatinine 1.07 H 0.550-1.02 mg/dL Glomerular Filtration Rate Calc 64 >90 mL/min BUN/Creatinine Ratio 11.2 10.0-20.0 Serum Glucose 94 74-106 mg/dL Calcium Level 9.8 8.7-10.4 mg/dL Total Bilirubin 0.4 0.2-1.0 mg/dL Aspartate Amino Transferase (AST) 12 L 13-40 U/L Alanine Aminotransferase (ALT) < 9 7-40 U/L Alkaline Phosphatase 75 46-116 U/L Total Protein 6.9 5.7-8.2 g/dL Albumin 4.0 3.2-4.8 g/dL Mean Platelet Volume 8.2 6.9-10.8 fL Neutrophils # (Auto) 4.1 1.6-8.6 10 ^3/uL Lymphocytes # (Auto) 1.3 0.4-5.4 10 ^3/uL Monocytes # (Auto) 0.8 0-1.3 10 ^3/uL Eosinophils # (Auto) 0.3 0-0.8 10 ^3/uL Basophils # (Auto) 0 0-0.2 10 ^3/uL Test 10/02/24 11:00 10/02/24 10:52 10/02/24 09:50 Range/Units Urine Color Yellow Yellow Urine Clarity Clear Clear Urine pH 6.0 5.0-9.0 Urine Specific [place] 1.023 1.001-1.035 Urine Protein Trace H Negative Urine Ketones Negative Negative Urine Blood Negative Negative /uL Urine Nitrite Negative Negative Urine Bilirubin Negative Negative Urine Urobilinogen Normal Negative mg/dL Urine Leukocyte Esterase Negative Negative /uL Urine RBC 1 0 - 4 /hpf Urine WBC None seen 0 - 5 /hpf Urine Squamous Epithelial Cells Few <5 /hpf Urine Bacteria None seen None Seen /hpf Urine Mucus Few None Seen Urine Glucose Normal Normal mg/dL Troponin I High Sensitivity < 3 L </=34 ng/L D-Dimer, Quantitative 4.09 H 0.0-0.49 mg/L FEU B-Type Natriuretic Peptide 22.67 0-100 pg/mL Microbiology Date/Time Source Procedure Growth Status 10/03/24 00:58 Nose MRSA Screen - Final Complete Problems(with codes): (1) HIV (human immunodeficiency virus infection) (2) Pneumonia Plan/Recommendation ASSESSMENT AND PLAN: ID Problem List: - Chest pain - Possible pneumonia - HIV controlled on Cabenuva - CKD stage 3 - Hypertension - Penicillin allergy (unknown reaction) Assessment This is a 48-year-old female with a past medical history of HIV on HAART therapy, CKD stage 3, and hypertension, who presents with chest pain and progressively worsening cough and shortness of breath. The chest pain has been getting progressively worse but resolved upon examination. She reports a persistent cough and shortness of breath that prompted this visit. She is currently on probation from prison and wears an ankle monitor. Vital signs on admission: BP 158/98 mmHg, HR 70 bpm, Temp 98.9F, SpO2 97% on room air. Laboratory data shows a WBC count of 9.3, platelets 314, sodium 139, creatinine 1.08, BUN 4.09. Troponins are negative. LFTs are normal. CD4 count is 429 (39%). Quantiferon Gold test is negative. Imaging studies: - CTA of the lungs showed that the left main pulmonary artery has some mixing artifact; however, a pulmonary embolism cannot be completely excluded. - VQ scan indicates a low probability for PE. - Chest X-ray shows no acute pulmonary disease. She was started on azithromycin and ceftriaxone for empiric treatment of community-acquired pneumonia. Plan: - Infectious Disease: - Continue azithromycin and ceftriaxone for empiric treatment of community- acquired pneumonia. - Recommend screening for gonorrhea, chlamydia, and syphilis as these may be contributing to the patient's symptoms. - PJP pneumonia is unlikely with a CD4 count of 429 but not impossible; if the patient has recurrent episodes of chest pain, consider starting Bactrim empirically. - Recommend checking procalcitonin level to assess if the patient is responding to antibiotics. - HIV is controlled on Cabenuva, which the patient takes every eight weeks; recommend follow-up with her HIV doctor upon discharge. - Monitoring: - Continue monitoring vital signs, symptoms, and laboratory values. - Monitor for any signs of hypoxia with ambulation. - Education: - Educate the patient on the importance of medication adherence and follow-up appointments. - Disposition: - ID will continue to follow during hospitalization. Isolation Precautions: Standard Assessment and plan were discussed with the patient as written above. Plan is subject to change pending incorporation of new incoming information/diagnostics. Updates may be added as addendum at the bottom (OR TOP) of this note. Thank you for this interesting consult. ID will continue to follow. Please contact Infectious Disease for any questions or concerns. Sarahi Mcguire M.D. [facility] Ph: ? - History: The patient's chart and medications were reviewed in detail, and the patient was seen and examined. History obtained from: Patient Briseida Paige is a 48-year-old female with a past medical history of HIV on HAART therapy, CKD stage 3, and hypertension, who presents with chest pain and progressively worsening cough and shortness of breath. The chest pain has been getting progressively worse but resolved upon examination. She reports that she is on probation from prison and wears an ankle monitor. She denies any rash, diarrhea, or new sexual partners. No history of syphilis in the past. She takes Cabenuva every eight weeks. Review of Systems: A complete 10-system review of systems was completed and negative except as noted in the HPI or here. - CONSTITUTIONAL: Denies weight loss, fever, and chills. - HEENT: Denies changes in vision and hearing. - RESPIRATORY: Denies cough and shortness of breath currently. - CV: Denies palpitations; chest pain resolved. - GI: Denies abdominal pain, nausea, vomiting, and diarrhea. - : Denies dysuria and urinary frequency. - MSK: Denies myalgia and joint pain. - SKIN: Denies rash and pruritus. - NEUROLOGICAL: Denies headache and syncope. - PSYCHIATRIC: Denies recent changes in mood, anxiety, and depression. Past Medical History: - HIV on HAART therapy - CKD stage 3 - Hypertension Past Surgical History: - Bilateral hip repair - Back surgery Home Medications: - Cabenuva injection every eight weeks Allergies: - Penicillin allergy (unknown reaction) Family History: - No notable family history. Social History: - Marital status: Not on file - Number of children: Not on file - Occupational History: Not on file - Tobacco Use: Never smoker - Alcohol Use: Denies alcohol use - Substance Use: Denies illicit drug use - Legal History: On probation from prison; wears an ankle monitor Objective: Vital Signs on Arrival: - Temp: 98.9F - BP: 158/98 mmHg - Pulse: 70 bpm - SpO2: 97% on room air Most Recent Vital Signs: - Temp: 98.9F - BP: 158/98 mmHg - Pulse: 70 bpm - SpO2: 97% on room air Physical Exam: - General: Mildly disheveled - Neck: Supple. No masses. - HEENT: PERRL. Normal lids and conjunctiva. Moist mucous membranes. Oropharynx without lesions, exudates, or excessive erythema. Normal appearance of the external aspects of the nose and ears. - Heart: Regular rhythm, normal rate. No murmurs, rubs, or gallops. No lower extremity edema. - Lungs: Normal respiratory effort. Clear to auscultation bilaterally. No wheezes. No crackles. - Abdomen: Soft. Non-tender. Non-distended. No masses or abdominal hernia. - Musculoskeletal: Generalized weakness in upper and lower extremities. No digital cyanosis. Normal tone in all four limbs. - Skin: Warm and dry, no rashes. - Neuro: Alert. No facial droop or slurred speech. Extra-ocular movements intact. Sensation intact to soft touch in all four limbs. - Psych: Appropriate mood. Full affect. Oriented to person, place, time, and sit uation. Lines: - Active Lines - Peripheral IV Line placed on 10/05/2024 in the left forearm, 20 gauge, <1 day duration. Diagnostic Studies: Available diagnostic studies were reviewed personally. Significant relevant results and findings are outlined below or addressed in the Assessment and Plan above. Pertinent Imaging: - CTA of the Lungs - Impression: - Left main pulmonary artery shows mixing artifact; pulmonary embolism cannot be completely excluded. - VQ Scan - Impression: - Low probability for pulmonary embolism. - Chest X-ray - Impression: - No acute pulmonary disease. Laboratory Results: CBC: WBC: 9.3 - Platelets: 314 BMP: - Sodium: 139 - Creatinine: 1.08 BUN: 4.09 - Cardiac Markers: - Troponins: Negative - Infectious Disease Labs: - CD4 Count: 429 (39%) - Quantiferon Gold Test: Negative - Liver Function Tests: - Within normal limits - Plan discussed with: Patient SARAHI MCGUIRE MD Oct 04, 2024 21:47
[2024-10-05] VITALS (8 sets, daily range): BP systolic 102–137; BP diastolic 53–97; PULSE 74–82; RESP 17–20; TEMP 98.1–98.6; O2SAT 94–99
[2024-10-05 04:07] LABS: Basos 1 % (Not Estab.); Eos 5 % (Not Estab.); Eos (Absolute) 0.3 x10E3/uL (0.0-0.4); Hematocrit 31.9 % (34.0-46.6); Hemoglobin 10.1 g/dL (11.1-15.9); Immature Granulocytes (Abs) 0.1 x10E3/uL (0.0-0.1); Lymphs 19 % (Not Estab.); Lymphs (Absolute) 1.1 x10E3/uL (0.7-3.1); MCH 25.3 pg (26.6-33.0); MCHC 31.7 g/dL (31.5-35.7); MCV 80 fL (79-97); Monocytes 11 % (Not Estab.); Monocytes (Absolute) 0.7 x10E3/uL (0.1-0.9); Neutrophils 62 % (Not Estab.); Neutrophils (Absolute) 3.7 x10E3/uL (1.4-7.0); Platelets 331 x10E3/uL (150-450); RDW 16.4 % (11.7-15.4)
[2024-10-05 05:41] LABS: Basophils # (auto) 0 10 ^3/uL (0-0.2); Basophils % (auto) 0.6 % (0.0-2.0); Eosinophils # (auto) 0.3 10 ^3/uL (0-0.8); Eosinophils % (auto) 4.6 % (0.0-7.0); Hematocrit 32.1 % (36.0-46.0); Hemoglobin 10.3 g/dL (12.2-16.2); Lymphocytes # (auto) 1.4 10 ^3/uL (0.4-5.4); Lymphocytes % (auto) 21.7 % (10.0-50.0); Mean Corpuscular Hemoglobin 25.3 pg (28.0-32.0); Mean Corpuscular Hgb Conc. 32.2 g/dL (32.0-36.0); Mean Corpuscular Volume 78.6 fL (80.0-100.0); Monocytes # (auto) 0.9 10 ^3/uL (0-1.3); Monocytes % (auto) 13.7 % (0.0-12.0); Neutrophils # (auto) 3.9 10 ^3/uL (1.6-8.6); Neutrophils % (auto) 59.4 % (37.0-80.0); Nucleated Red Blood Cells % 0.1 %; Platelet Count (auto) 292 10^3/uL (140-450); Red Blood Cells 4.09 10^6/uL (4.0-5.20); Red Cell Distribution Width 18.7 % (11.8-14.3); White Blood Cell 6.6 10^3/uL (4.4-10.8)
[2024-10-05 05:55] LABS: Albumin 3.7 g/dL (3.2-4.8); Alkaline Phosphatase 71 U/L (46-116); Anion Gap 5 (5-15); Aspartate Aminotransferase 9 U/L (13-40); BUN/Creatinine Ratio 11.9 (10.0-20.0); Bilirubin, Total 0.4 mg/dL (0.2-1.0); Blood Urea Nitrogen 14 mg/dL (9-23); Calcium 9.6 mg/dL (8.7-10.4); Carbon Dioxide 28 mmol/L (20-31); Chloride 108 mmol/L (98-107); Glucose 98 mg/dL (74-106); Potassium 4.4 mmol/L (3.5-5.1); Sodium 141 mmol/L (136-145); Total Protein 6.4 g/dL (5.7-8.2)
[2024-10-05 05:59] LABS: Alanine Aminotransferase < 9 U/L (7-40)
[2024-10-05 09:07] LABS: % CD 8 Pos Lymph 25.2 % (12.0-35.5); Absolute CD 4 Helper 429 /uL (359-1519); CD4/CD8 Ratio 1.55 (0.92-3.72)
[2024-10-05 13:06] LABS: QuantiFERON-TB Gold Plus Negative (Negative)
[2024-10-05] MEDS ORDERED: GABA-339 PO (14:44)
[2024-10-05] MEDS ORDERED: LEVO500T91 PO (14:44)
--- NOTE | 2024-10-05 14:49 | DVHDS2 ---
Discharge Summary Date of Admission Oct 02, 2024 at 15:27 Date of Discharge: Oct 05, 2024 Labs/Diagnostic Data: Laboratory Results Test 10/05/24 12:03 10/05/24 04:59 10/04/24 08:51 10/03/24 15:05 POC Glucose 108 mg/dl (70-106) White Blood Count 6.6 10^3/uL (4.4-10.8) Red Blood Count 4.09 10^6/uL (4.0-5.20) Hemoglobin 10.3 g/dL (12.2-16.2) Hematocrit 32.1 % (36.0-46.0) Mean Corpuscular Volume 78.6 fL (80.0-100.0) Mean Corpuscular Hemoglobin 25.3 pg (28.0-32.0) Mean Corpuscular Hemoglobin Concent 32.2 g/dL (32.0-36.0) Red Cell Distribution Width 18.7 % (11.8-14.3) Platelet Count 292 10^3/uL (140-450) Mean Platelet Volume 8.1 fL (6.9-10.8) Neutrophils (%) (Auto) 59.4 % (37.0-80.0) Lymphocytes (%) (Auto) 21.7 % (10.0-50.0) Monocytes (%) (Auto) 13.7 % (0.0-12.0) Eosinophils (%) (Auto) 4.6 % (0.0-7.0) Basophils (%) (Auto) 0.6 % (0.0-2.0) Neutrophils # (Auto) 3.9 10 ^3/uL (1.6-8.6) Lymphocytes # (Auto) 1.4 10 ^3/uL (0.4-5.4) Monocytes # (Auto) 0.9 10 ^3/uL (0-1.3) Eosinophils # (Auto) 0.3 10 ^3/uL (0-0.8) Basophils # (Auto) 0 10 ^3/uL (0-0.2) Nucleated Red Blood Cells 0.1 % Sodium Level 141 mmol/L (136-145) Potassium Level 4.4 mmol/L (3.5-5.1) Chloride Level 108 mmol/L (98-107) Carbon Dioxide Level 28 mmol/L (20-31) Anion Gap 5 (5-15) Blood Urea Nitrogen 14 mg/dL (9-23) Creatinine 1.18 mg/dL (0.550-1.02) Glomerular Filtration Rate Calc 57 mL/min (>90) BUN/Creatinine Ratio 11.9 (10.0-20.0) Serum Glucose 98 mg/dL (74-106) Calcium Level 9.6 mg/dL (8.7-10.4) Total Bilirubin 0.4 mg/dL (0.2-1.0) Aspartate Amino Transferase (AST) 9 U/L (13-40) Alanine Aminotransferase (ALT) < 9 U/L (7-40) Alkaline Phosphatase 71 U/L (46-116) Total Protein 6.4 g/dL (5.7-8.2) Albumin 3.7 g/dL (3.2-4.8) Absolute Neutrophils (auto) 3.7 x10E3/uL (1.4-7.0) Absolute Lymphocytes (auto) 1.1 x10E3/uL (0.7-3.1) Absolute Monocytes (auto) 0.7 x10E3/uL (0.1-0.9) Absolute Eosinophils (auto) 0.3 x10E3/uL (0.0-0.4) Absolute Basophils (auto) 0.0 x10E3/uL (0.0-0.2) Immature Granulocytes % 2 % (Not Estab.) Immature Granulocytes # 0.1 x10E3/uL (0.0-0.1) Immature Blood Cells (.) Hematology Comments (.) Percent CD4 Cells 39.0 % (30.8-58.5) Absolute CD4 Count 429 /uL (359-1519) T-Lymphocyte CD4/CD8 Ratio 1.55 (0.92-3.72) Percent CD8 Cells 25.2 % (12.0-35.5) Absolute CD8 Count 277 /uL (109-897) TB Test (QFT) Gold Plus Negative (Negative) TB Test (QFT) Nil 0.03 IU/mL (.) TB Test (QFT) Mitogen 8.03 IU/mL (.) TB Test (QFT) Antigen 1 0.04 IU/mL (.) TB Test (QFT) Antigen 2 0.02 IU/mL (.) TB Test (QFT) Criteria Comment (.) Test 10/02/24 11:00 10/02/24 10:52 10/02/24 09:50 Urine Color Yellow (Yellow) Urine Clarity Clear (Clear) Urine pH 6.0 (5.0-9.0) Urine Specific [place] 1.023 (1.001-1.035) Urine Protein Trace (Negative) Urine Ketones Negative (Negative) Urine Blood Negative /uL (Negative) Urine Nitrite Negative (Negative) Urine Bilirubin Negative (Negative) Urine Urobilinogen Normal mg/dL (Negative) Urine Leukocyte Esterase Negative /uL (Negative) Urine RBC 1 /hpf (0 - 4) Urine WBC None seen /hpf (0 - 5) Urine Squamous Epithelial Cells Few /hpf (<5) Urine Bacteria None seen /hpf (None Seen) Urine Mucus Few (None Seen) Urine Glucose Normal mg/dL (Normal) Troponin I High Sensitivity < 3 ng/L (</=34) D-Dimer, Quantitative 4.09 mg/L FEU (0.0-0.49) B-Type Natriuretic Peptide 22.67 pg/mL (0-100) Other Laboratory Tests 10/05/24 04:59 Brief Hx & Hospital Course: 48yo F w PMHx HIV, CKD, hypertension in [facility] ED p/w CC chest pain, cough and SOB. Patient reports symptoms progressively get worse with persistent cough, shortness of breaths, getting worse that prompted this visit. Patient reports she is currently on state probation with ankle monitor accompanied by her mother. on admit Ddimer elevated, CTA chest PE study was inadequate, V/Q scan low probability. 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 she complains of ongoing dislocations on BL CINTHIA from [facility]. BABS on CKD noted, improving near discharge. troponin negative x3, bnp wnl, cxr normal. hx hiv failed biktarvy, on cabenuva, CD4>400, will need f/u with ID outpatient. Patients cough was signicant and high risk given recent discharge from [facility], she improved on ctx/azithro, unable to produce sputum. quant gold negative. since paitent is improving, will discharge with outpatient abx levaquin and close f/u with respective [facility] as mentioned in plan below. diagnosis: CAP pneumonia, gram neg/gram pos likely'; chest pain, unlikely ACS; BABS on CKD resolving; HIV (CD4 stable); TB ruled out; PE ruled out; hx CINTHIA with ongoing easy dislocations. discharge plan: - take levaquin 750mg daily x 5 days - start gabapentin 300 3x/day - stop keppra, stop acyclovir - social to setup patient with PCP - f/u DC clinic - f/u PCP - f/u obgyn - f/u ID for aids medications - f/u orthopedics for BL hip CINTHIA history and issues - PCP/DC clinic to review discharge with patient on follow-up Visitation and planning required 35 minutes Condition at Discharge: Fair Final Diagnosis/Problems List pneumonia Discharge Disposition: Home Discharge Instruct/Medications Diet: Regular Activity: No Restrictions, As Tolerated Follow Up/Referral: pcp, obgyn, ID, orthopedics Medications: as below Discharge Statement: "Patient was advised to return to the ER or call 911 if any headaches, dizziness, shortness of breath, chest pain, abdominal pain, bleeding, fevers, or worsening of medical condition. Patient was counseled about treatment plan, medications, possible side effects, patientverbalized understanding. All questions were answered to the best of my ability. This discharge took greater then 30 minutes in planning, reviewing documentation, counseling the patient, and discussing with other team members." ASSESSMENT ASSESSMENT Assessment CAP pneumonia, gram neg/gram pos likely'; chest pain, unlikely ACS; BABS on CKD resolving; HIV (CD4 stable); TB ruled out; PE ruled out; hx CINTHIA with ongoing easy dislocations. Date of Service: Oct 05, 2024 Billing Provider: ABHINAV PEARSON MD Common Visit Codes: 09362-ZBV/OBS DISCH DAY >30min ABHINAV PEARSON MD Oct 05, 2024 14:49
--- NOTE | 2024-10-05 22:53 | DVHPN2 ---
Consult Progress Note Date Seen: Oct 05, 2024 Subjective Patient reports: Other (no shortness of breath or chest pain , states that hospices plans to discharge her soon ) Objective vital signs Vital Sign Date Time Temp Pulse Resp B/P (MAP) Pulse Ox O2 Delivery O2 Flow Rate FiO2 10/05/24 16:48 98.2 79 17 132/83 (99) 99 98.2 10/05/24 08:00 Room Air* 0 21 Total Intake and Output 10/04/24 10/04/24 10/05/24 15:00 23:00 07:00 Intake Total 300 ml 500 ml 1200 ml Balance 300 ml 500 ml 1200 ml medications Current Medications Medications Dose Ordered Sig/[place] Route Start Time Stop Time Status Last Admin Dose Admin Patient Own Medication 400 mg BID PO 10/04/24 10:00 UNV Patient Own Medication 1 tab DAILY PO 10/04/24 10:00 UNV Patient Own Medication 1 mg DAILY PO 10/04/24 10:00 UNV Patient Own Medication 100 mg BID PO 10/04/24 10:00 UNV Physical Exam: - General: Mildly disheveled - Neck: Supple. No masses. - HEENT: PERRL. Normal lids and conjunctiva. Moist mucous membranes. Oropharynx without lesions, exudates, or excessive erythema. Normal appearance of the external aspects of the nose and ears. - Heart: Regular rhythm, normal rate. No murmurs, rubs, or gallops. No lower extremity edema. - Lungs: Normal respiratory effort. Clear to auscultation bilaterally. No wheezes. No crackles. - Abdomen: Soft. Non-tender. Non-distended. No masses or abdominal hernia. - Musculoskeletal: Generalized weakness in upper and lower extremities. No digital cyanosis. Normal tone in all four limbs. - Skin: Warm and dry, no rashes. - Neuro: Alert. No facial droop or slurred speech. Extra-ocular movements intact. Sensation intact to soft touch in all four limbs. - Psych: Appropriate mood. Full affect. Oriented to person, place, time, and situation. laboratory and microbiology Laboratory Tests 10/05/24 04:59 Test 10/05/24 04:59 Range/Units Serum Glucose 98 74-106 mg/dL Problem List/Assessment/Plan Problems(with codes): (1) Acute chest pain (2) Elevated d-dimer (3) Uterine prolapse (4) Shortness of breath (5) Pneumonia (6) HIV (human immunodeficiency virus infection) Problem List/Assessment/Plan ID Problem List: - Chest pain - Possible pneumonia - HIV controlled on Cabenuva - CKD stage 3 - Hypertension - Penicillin allergy (unknown reaction) Assessment This is a 48-year-old female with a past medical history of HIV on HAART therapy, CKD stage 3, and hypertension, who presents with chest pain and progressively worsening cough and shortness of breath. The chest pain has been getting progressively worse but resolved upon examination. She reports a persistent cough and shortness of breath that prompted this visit. She is currently on probation from senior living and wears an ankle monitor. Vital signs on admission: BP 158/98 mmHg, HR 70 bpm, Temp 98.9F, SpO2 97% on room air. Laboratory data shows a WBC count of 9.3, platelets 314, sodium 139, creatinine 1.08, BUN 4.09. Troponins are negative. LFTs are normal. CD4 count is 429 (39%). Quantiferon Gold test is negative. Imaging studies: - CTA of the lungs showed that the left main pulmonary artery has some mixing artifact; however, a pulmonary embolism cannot be completely excluded. - VQ scan indicates a low probability for PE. - Chest X-ray shows no acute pulmonary disease. She was started on azithromycin and ceftriaxone for empiric treatment of community-acquired pneumonia. 10/05: Judith got her last does of Cabinuva on august 19 and is due soon for next does . Does not have HIV Dr in the area Plan: - Hold off on HIV regimen white inpatient - Follow up with infectious disease in 2 weeks to determine HIV regimen - Agree with discharging patient on 5 dyas levofloxacin for pneumonia - Infectious Disease: - Continue azithromycin and ceftriaxone for empiric treatment of community- acquired pneumonia. - Recommend screening for gonorrhea, chlamydia, and syphilis as these may be contributing to the patient's symptoms. - PJP pneumonia is unlikely with a CD4 count of 429 but not impossible; if the patient has recurrent episodes of chest pain, consider starting Bactrim empirically. - Recommend checking procalcitonin level to assess if the patient is responding to antibiotics. - HIV is controlled on Cabenuva, which the patient takes every eight weeks; recommend follow-up with her HIV doctor upon discharge. - Monitoring: - Continue monitoring vital signs, symptoms, and laboratory values. - Monitor for any signs of hypoxia with ambulation. - Education: - Educate the patient on the importance of medication adherence and follow-up appointments. - Disposition: - ID will continue to follow during hospitalization. Plan discussed with: SARAHI Foster MD Oct 05, 2024 22:53
== END 2024-10-05 17:15 | disposition home or self-care (01) | DRG 137 ==
LOC: ER 08:26 → TELE 15:27 → TELE-E-ADS 15:29 → TELE-EAST 10-03 15:04
PROVIDERS: ADMIT Nurse Practitioner Family; ATTEND Student in an Organized Health Care Education/Training Program
DX: J15.69 Pneumonia due to other Gram-negative bacteria (principal); E11.22 Type 2 diabetes mellitus with diabetic chronic kidney disease; J15.9 Unspecified bacterial pneumonia; Z96.642 Presence of left artificial hip joint; N18.30 Chronic kidney disease, stage 3 unspecified; I12.9 Hypertensive chronic kidney disease with stage 1 through stage 4 chronic kidney disease, or unspecified chronic kidney disease; N81.4 Uterovaginal prolapse, unspecified; Z88.0 Allergy status to penicillin; Z79.899 Other long term (current) drug therapy; Z83.3 Family history of diabetes mellitus; Z91.410 Personal history of adult physical and sexual abuse
CPT/HCPCS: 36415; 71045; 71275; 78582; 80053; 81001; 82962; 83880; 84484; 85025; 85379; 86360; 87081; 99291; G0378; J2405

== ENCOUNTER 2025-01-01 12:53 | Inpatient (IN) | payer MEDICAID ==
[~2025-01-01] VITALS: Ht 165.1 cm; Wt 125.1 kg
[~2025-01-01 12:53] MED LIST: AMLO1TAB22 PO; B-CO-5 PO; CABO1SUS IM; FOLI-119 PO; GABA-339 PO; LEVO500T91 PO; METO-159 PO; [UNRECOGNIZED DRUG - CODE] PO
--- NOTE | 2025-01-01 13:17 | ED.PDOC ---
History of Present Illness HPI Comments 49-year-old female presents with a chief complaint of pelvic pain and uterine prolapse x 2 weeks. Patient states that she has a prolapsed uterus and that it is painful to walk. Patient mentions that this has happened before, but she was in residential when it happened. Patient denies having an OPERATOR specialist or a PMD. Patient denies any urinary symptoms at this time. Patient is not on blood thinners. Chief Complaint: Pelvic Pain Time Seen by MD: 13:10 Reviewed Notes: Medications, Allergies Allergies: Coded Allergies: Penicillins (Verified Allergy, Unknown, 10/02/24) Home Meds Active Scripts Gabapentin (Gabapentin) 600 Mg Tab, 300 MG PO TID for 30 Days, #45 TAB 1 Refill Prov:ABHINAV PEARSON MD 10/05/24 Levofloxacin Hemihydrate (LEVAQUIN 500 MG) 500 Mg Tab, 750 MG PO DAILY for 7 Days, #11 TAB 0 Refills Prov:ABHINAV PEARSON MD 10/05/24 Reported Medications Cabotegravir & Rilpivirine (Cabenuva 600 & 900 mg/3Ml) 1 Flory Flory, 600.9 FLORY IM every 8 weeks for h.i.v, ML 10/02/24 Cholecalciferol (GNP VITAMIN D3 EXTRA STRE) 1,000 Unit Tab, 2000 UNIT PO DAILY, TAB 10/02/24 B-Complex W/ C & Folic Acid (Cindy-Hermelindo) Tab, 1 PO DAILY, TAB 10/02/24 Folic Acid (Folic Acid) 1 Mg Tab, 1 MG PO DAILY, MG 10/02/24 Amlodipine Besylate (Amlodipine Besylate) 5 Mg Tab, 5 MG PO DAILY, MG 10/02/24 Metoprolol Tartrate (Metoprolol Tartrate) 100 Mg Tab, 100 MG PO BID, MG 10/02/24 Information Source: Patient Mode of Arrival: Ambulatory Severity: Moderate Timing: Days Duration: Since onset Prehospital treatment: None Past Medical History PAST MEDICAL HISTORY: CKF, HIV, HTN 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 GOODS SALESPERSON Hx Family History Family History: Reviewed,noncontributory to illness Social History Smoker: Non-Smoker Alcohol: Denies ETOH Use Drugs: Denies Drug Use Lives In: Home Constitutional: denies: chills, diaphoresis, fatigue, fever, malaise, sweats, weakness, others EENTM: denies: blurred vision, double vision, ear bleeding, ear discharge, ear drainage, ear pain, ear ringing, eye pain, eye redness, hearing loss, mouth pain, mouth swelling, nasal discharge, nose bleeding, nose congestion, nose pain, photophobia, tearing, throat pain, throat swelling, voice changes, others Respiratory: denies: cough, hemoptysis, orthopnea, SOB at rest, shortness of breath, SOB with excertion, stridor, wheezing, others Cardiovascular: denies: chest pain, dizzy spells, diaphoresis, Dyspnea on exertion, edema, irregular heart beat, left arm pain, lightheadedness, palpitations, PND, syncope, others Gastrointestinal: denies: abdomen distended, abdominal pain, blood streaked bowels, constipated, diarrhea, dysphagia, difficulty swallowing, hematemesis, melena, nausea, poor appetite, poor fluid intake, rectal bleeding, rectal pain, vomiting, others Genitourinary: reports: pain, others (UTERINE PROLAPSE); denies: abnormal vagina bleeding, burning, dyspareunia, dysuria, flank pain, frequency, hematuria, incontinence, , vagina discharge, urgency Neurological: denies: dizziness, fainting, headache, left sided numbness, left sided weakness, numbness, paresthesia, pre-existing deficit, right sided numbness, right sided weakness, seizure, speech problems, tingling, tremors, weakness, others Musculoskeletal: denies: back pain, gout, joint pain, joint swelling, muscle pain, muscle stiffness, neck pain, others Integumetry: denies: bruises, change in color, change in hair/nails, dryness, laceration, lesions, lumps, rash, wounds, others Allergic/Immunocompromised: denies: Difficulty Healing, Frequent Infections, Hives, Itching, others Hematologic/Lymphatic: denies: anemia, blood clots, easy bleeding, easy bruising, swollen glands, others Endocrine: denies: excessive hunger, excessive sweating, excessive thirst, excessive urination, flushing, intolerance to cold, intolerance to heat, unexplained weight gain, unexplained weight loss, others Psychiatric: denies: anxiety, bipolar disorder, depression, hopeless, panic disorder, schizophrenia, sleepless, suicidal, others All Other Systems: Reviewed and Negative Physical Exam General Appearance: Moderate Distress, Normal HEENT: Normal ENT Inspection, Pharynx Normal, TMs Normal Neck: Full Range of Motion, Non-Tender, Normal, Normal Inspection Respiratory: Chest Non-Tender, Lungs Clear, No Accessory Muscle Use, No Respiratory Distress, Normal Breath Sounds Cardiovascular: No Edema, No JVD, No Murmur, No Gallop, Normal Peripheral Pulses, Regular Rate/Rhythm Breast Exam: Deferred Gastrointestinal: No Organomegaly, Non Tender, No Pulsatile Mass, Normal Bowel Sounds, Soft Genitalia: Deferred Pelvic: Deferred Rectal: Deferred Extremities: No calf tenderness, Normal capillary refill, Normal inspection, Normal range of motion, Non-tender, No pedal edema Musculoskeletal : Apperance: Normal Neurologic: Alert, burial agent II-XII nml as Tested, No Motor Deficits, Normal Affect, Normal Mood, No Sensory Deficits Cerebellar Function: Normal Reflexes: Normal Skin: Dry, Normal Color, Warm Peripheral Pulses: 3+ Radial (R), 3+ Radial (L) Lymphatic: No Adenopathy Was a procedure done? Was a procedure done?: No Differential Dx Considerations may include: Uterine prolapse Urinary tract infection X-Ray, Labs, Meds, VS Vital Signs Date Time Temp Pulse Resp B/P (MAP) Pulse Ox O2 Delivery O2 Flow Rate FiO2 01/01/25 13:08 97.9 95 17 167/98 (121) 97 Patient alert. Has uterine prolapse. Vitals stable. Answering questions. She is able to urinate. Ambulating. She does have surgeries on the hip. Possibly will need further imaging. High Lighter consultation. Explained to the patient. Continue monitoring. Time of 1ST Reevaluation: 13:40 Reevaluation 1ST: Unchanged Patient Education/Counseling: Diagnosis, Treatment, Prognosis Family Education/Counseling: Diagnosis, Treatment, Prognosis Departure 1 Departure Time of Disposition: 15:05 Impression: Primary Impression: Uterine prolapse Additional Impression: Hypertensive urgency Disposition: ADMITTED INPATIENT Admit to: Med Surg Condition: Guarded Critical Care Note Critical Care Time?: No Stability Stability form required: No Heart Score Heart Score: Heart Score Response (Comments) Value History N/A 0 EKG N/A 0 Age N/A 0 Risk Factors N/A 0 Troponin N/A 0 Total 0 I personally scribed for VIKAS ROSEN MD ([email or web address]) on 01/01/25 at 13:17. Electronically submitted by Herbert Cody ([email or web address]). VIKAS ROSEN MD Jan 01, 2025 13:17
--- NOTE | 2025-01-01 13:47 | DVH ---
CT abdomen and pelvis without contrast Comparison: None INDICATION: Uterine prolapse TECHNIQUE: Serial axial images were performed through the abdomen and pelvis and then reformatted in the sagittal and coronal plane. All CT scans at this medical facility are performed using dose modulation techniques as appropriate t o a performed exam including the following: Automated exposure control was utilized; adjustment of the MA and/or KvP according to patient size; a nd use of iterative reconstruction technique. FINDINGS: Liver and spleen are normal in size without focal mass. No renal masses, stones or hydronephrosis. No masses or enlargement of the adrenal glands or pancreas. No biliary dilatation. No gallstones. No distention of bowel loops to suggest mechanical obstruction of bowel. The appendix is normal in ap pearance. No free fluid. Within the pelvis, there is severe beam hardening artifact from metallic hip prosthesis obscuring the urinary bladder and uterus. IMPRESSION: 1. Study nondiagnostic due to severe beam hardening artifact from bilateral metallic hip prostheses. Recommend MRI pelvis for further evaluation of uterine prolapse Computed Tomographic Radiation Dosimetry Report: Total CTDI vol = 25 mGy Total DLP = 1497 mGy-cm Low dose protocols were performed.
[2025-01-01 15:56] LABS: Urine Bacteria None Seen /hpf (None Seen)
[2025-01-01 16:04] LABS: Urine Blood 3+ /uL (Negative); Urine Clarity Ex.Turbid (Clear); Urine Color Light-Brown (Yellow); Urine Protein, UAD 1+ (Negative); Urine Specific Gravity 1.026 (1.001-1.035); Urine Squamous Epithelial Cell FEW /hpf (<5); Urine Urobilinogen Normal (Negative); Urine WBC 26 /HPF (0-5); Urine pH 5.5 (5.0-9.0)
[2025-01-01] MEDS ORDERED: ACETAMINOPHEN 325 MG TAB PO PRN (16:45)
[2025-01-01] MEDS ORDERED: ONDANSETRON HCL 4 MG/2 ML VIAL IV PRN (16:45)
--- NOTE | 2025-01-01 17:09 | DVHHP2 ---
History of Present Illness Reason for Visit: Pelvic pain, prolapsed uterus History of Present Illness Briseida Paige is a 49-year-old female with past medical history of hypertension, HIV, and chronic renal insufficiency, who came into the hospital for prolapsed uterus and vaginal bleeding. Patient states this all began about 8 months ago, but she was in halfway. She states they didn't do much about it. She states when it first started she could push is back in and be okay. Now she is not able to do that, it has become very painful, and she has had vaginal bleeding for about 2 weeks. Cardiovascular: HTN Infectious disease: HIV Renal/: Chronic renal insuff Grav: 0 Past Surgical History: Other (L4-L5 back surgery), Total hip replacement (right x 3, left x 1) Smoke: No ALCOHOL: none Drugs: None Lives: with Family Domestic Violence: Neg Review of Systems Constitutional: No: Fever, Chills, Sweats, Weakness, Malaise, Other Eyes: No: Pain, Vision change, Conjunctivae inflammation, Eyelid inflammation, Other, Redness ENT: No: Ear pain, Ear discharge, Nose pain, Nose discharge, Nose congestion, Mouth pain, Mouth swelling, Throat pain, Throat swelling, Other Respiratory: No: Cough, Dry, Shortness of breath, SOB with excertion, Wheezing, Hemoptysis, Pleuritic Pain, Sputum, Wheezing, Other Cardiovascular: No: Chest Pain, Palpitations, Orthopnea, Paroxysmal Noc. Dyspnea, Edema, Lt Headedness, Other Gastrointestinal: No: Nausea, Vomiting, Abdominal Pain, Diarrhea, Constipation, Melena, Hematochezia, Other Genitourinary: No Dysuria, No Frequency, No Incontinence, No Hematuria, No Retention; Other (Pelvic pain, prolapsed uterus, vaginal bleeding) Musculoskeletal: No: other, neck pain, shoulder pain, arm pain, back pain, hand pain, leg pain, foot pain Skin: No: Rash, Lesions, Jaundice, Bruising, Other Neurological: No: Weakness, Numbness, Incoordination, Change in speech, Confusion, Seizures, Other Allergies: Coded Allergies: Penicillins (Verified Allergy, Unknown, 10/02/24) Exam Vital Signs Vital Signs Date Time Temp Pulse Resp B/P (MAP) Pulse Ox O2 Delivery O2 Flow Rate FiO2 01/01/25 13:08 97.9 95 17 167/98 (121) 97 General Appearance: Alert, Oriented X3, Cooperative, mild distress HEENT: Atraumatic, PERRLA Respiratory: Clear to auscultation, Normal air movement Cardiovascular: Regular rate, Normal S1, Normal S2, No murmurs Abdominal: Normal bowel sounds, Soft, No tenderness, Other (Pelvic pain) Extremities: No clubbing, No cyanosis, No edema, Normal pulses Skin: No rashes, No breakdown, No significant lesion Neuro: Normal gait, Normal speech, Other (uses a walker at her baseline) Psych/Mental Status: Mental status NL, Mood NL Labs/Xrays Labs Test 01/01/25 14:52 Range/Units Urine Color Light-brown Yellow Urine Clarity Ex.turbid Clear Urine pH 5.5 5.0-9.0 Urine Specific [place] 1.026 1.001-1.035 Urine Protein 1+ H Negative Urine Ketones Negative Negative Urine Blood 3+ H Negative /uL Urine Nitrite Negative Negative Urine Bilirubin Negative Negative Urine Urobilinogen Normal Negative mg/dL Urine Leukocyte Esterase 1+ Negative /uL Urine RBC 4761 0 - 4 /hpf Urine Microscopic WBC 26 H 0-5 /HPF Urine Squamous Epithelial Cells Few <5 /hpf LABUrine Bacteria None seen None Seen /hpf Urine Glucose Normal Normal mg/dL Labs ordered, waiting on results. CT abdomen and pelvis without contrast FINDINGS: Liver and spleen are normal in size without focal mass. No renal masses, stones or hydronephrosis. No masses or enlargement of the adrenal glands or pancreas. No biliary dilatation. No gallstones. No distention of bowel loops to suggest mechanical obstruction of bowel. The appendix is normal in appearance. No free fluid. Within the pelvis, there is severe beam hardening artifact from metallic hip prosthesis obscuring the urinary bladder and uterus. IMPRESSION: 1. Study nondiagnostic due to severe beam hardening artifact from bilateral metallic hip prostheses. Recommend MRI pelvis for further evaluation of uterine prolapse Assessment/Plan Assessment/Plan Assessment: Uterine prolapse, Vaginal bleeding, Hypertension, Plan: Admit to Med-Surg, TACTICAL DECEPTION PLANS OFFICER consult, Pain management, Home medications reconciled, Labs not ordered by ER, waiting on lab results, Plan discussed with: Patient My Orders Orders - JAMIL MATOS Procedure Category Date Status Time Complete Blood Count LAB 01/01/25 Logged 16:31 Comprehensive LAB 01/01/25 Logged Metabolic Panel 16:31 PTPTT LAB 01/01/25 Logged 16:31 Admit ADMIT 01/01/25 Verified 16:40 Code Status CODE 01/01/25 Verified 16:40 2 Gm Sodium Diet DIET 01/01/25 Verified Dinner Sodium Chloride Lock PHA 01/01/25 Verified (Saline Lock Ns) 22:00 Hydrocodone-Acet PHA 01/01/25 Verified 5/325mg Tab ([place] 16:45 Ondansetron Hcl PHA 01/01/25 Verified (Zofran) 16:45 Docusate Sodium PHA 01/01/25 Verified Capsule ([place] 16:45 Complete Blood Count LAB 01/02/25 Verified 04:00 Comprehensive LAB 01/02/25 Verified Metabolic Panel 04:00 Condition: Serious HEYDI 01/01/25 Verified 16:40 Acetaminophen Tablet PHA 01/01/25 Verified (Tylenol Tablet) 16:45 Date of Service: Jan 01, 2025 Billing Provider: JAMIL MATOS Common Visit Codes: [id number] INP/OBS CARE (MOD) JAMIL MATOS Jan 01, 2025 17:09
[2025-01-01 17:11] VITALS: PULSE 88; RESP 16; O2SAT 93
[2025-01-01 17:20] VITALS: BP 144/86; PULSE 94; RESP 18; TEMP 98.4; O2SAT 99
[2025-01-01 19:06] LABS: Alanine Aminotransferase 10 U/L (7-40); Albumin 4.3 g/dL (3.2-4.8); Alkaline Phosphatase 73 U/L (46-116); Anion Gap 8 (5-15); BUN/Creatinine Ratio 14.2 (10.0-20.0); Bilirubin, Total 0.4 mg/dL (0.2-1.0); Blood Urea Nitrogen 15 mg/dL (9-23); Calcium 9.7 mg/dL (8.7-10.4); Carbon Dioxide 24 mmol/L (20-31); Chloride 105 mmol/L (98-107); Glucose 92 mg/dL (74-106); Potassium 4.3 mmol/L (3.5-5.1); Sodium 137 mmol/L (136-145); Total Protein 7.1 g/dL (5.7-8.2)
[2025-01-01 19:19] LABS: Aspartate Aminotransferase 12 U/L (13-40)
[2025-01-01 19:21] LABS: Basophils # (auto) 0 10 ^3/uL (0-0.2); Basophils % (auto) 0.5 % (0.0-2.0); Eosinophils # (auto) 0.3 10 ^3/uL (0-0.8); Eosinophils % (auto) 3.6 % (0.0-7.0); Hematocrit 32.8 % (36.0-46.0); Hemoglobin 10.2 g/dL (12.2-16.2); Lymphocytes # (auto) 1.8 10 ^3/uL (0.4-5.4); Lymphocytes % (auto) 24.5 % (10.0-50.0); Mean Corpuscular Hemoglobin 23.3 pg (28.0-32.0); Mean Corpuscular Volume 75.2 fL (80.0-100.0); Monocytes # (auto) 0.7 10 ^3/uL (0-1.3); Monocytes % (auto) 9.9 % (0.0-12.0); Neutrophils # (auto) 4.5 10 ^3/uL (1.6-8.6); Neutrophils % (auto) 61.5 % (37.0-80.0); Nucleated Red Blood Cells % 0.1 %; Platelet Count (auto) 378 10^3/uL (140-450); Red Blood Cells 4.37 10^6/uL (4.0-5.20); Red Cell Distribution Width 17.9 % (11.8-14.3); White Blood Cell 7.3 10^3/uL (4.4-10.8)
[2025-01-01 19:36] LABS: INR 0.94 (0.9-1.15); Partial Thromboplastin Time 27.4 SEC (24.5-34.5)
[2025-01-01 19:51] VITALS: BP 144/86; PULSE 94; TEMP 98.4; O2SAT 99
[2025-01-01] MEDS: HYDROcodone-ACET 5/325MG TAB PO PRN (19:53)
[2025-01-01] MEDS: SODIUM CHLOR 0.9% PF (SALINE LOCK) 10ML VIAL/SYR IV SCH (21:21)
[2025-01-01] MEDS: GABAPENTIN 300 MG CAP PO SCH (21:22)
[2025-01-01] MEDS: METOPROLOL TARTRATE 50 MG TAB PO SCH (21:24)
[2025-01-02 05:58] LABS: Basophils # (auto) 0 10 ^3/uL (0-0.2); Basophils % (auto) 0.6 % (0.0-2.0); Eosinophils # (auto) 0.3 10 ^3/uL (0-0.8); Eosinophils % (auto) 4.8 % (0.0-7.0); Hematocrit 30.8 % (36.0-46.0); Hemoglobin 9.5 g/dL (12.2-16.2); Lymphocytes # (auto) 1.1 10 ^3/uL (0.4-5.4); Lymphocytes % (auto) 19.6 % (10.0-50.0); Mean Corpuscular Hemoglobin 23.1 pg (28.0-32.0); Mean Corpuscular Volume 74.7 fL (80.0-100.0); Monocytes # (auto) 0.4 10 ^3/uL (0-1.3); Monocytes % (auto) 7.6 % (0.0-12.0); Neutrophils # (auto) 3.7 10 ^3/uL (1.6-8.6); Neutrophils % (auto) 67.4 % (37.0-80.0); Nucleated Red Blood Cells % 0.2 %; Platelet Count (auto) 341 10^3/uL (140-450); Red Blood Cells 4.12 10^6/uL (4.0-5.20); Red Cell Distribution Width 18.1 % (11.8-14.3); White Blood Cell 5.5 10^3/uL (4.4-10.8)
[2025-01-02 06:06] LABS: Alanine Aminotransferase 10 U/L (7-40); Albumin 3.8 g/dL (3.2-4.8); Alkaline Phosphatase 64 U/L (46-116); Anion Gap 7 (5-15); BUN/Creatinine Ratio 14.3 (10.0-20.0); Blood Urea Nitrogen 18 mg/dL (9-23); Calcium 9.2 mg/dL (8.7-10.4); Carbon Dioxide 26 mmol/L (20-31); Chloride 106 mmol/L (98-107); Potassium 3.8 mmol/L (3.5-5.1); Sodium 139 mmol/L (136-145)
[2025-01-02 06:07] LABS: Aspartate Aminotransferase 11 U/L (13-40); Bilirubin, Total 0.6 mg/dL (0.2-1.0); Glucose 122 mg/dL (74-106); Total Protein 6.3 g/dL (5.7-8.2)
[2025-01-02 09:00] VITALS: BP 119/80; PULSE 64; RESP 17; TEMP 98.1; O2SAT 96
[2025-01-02 09:36] LABS: Hepatitis B Surface Antigen Negative (Negative)
[2025-01-02 10:01] LABS: Hepatitis C Antibody Negative (Negative)
[2025-01-02] MEDS: FOLIC ACID 1 MG TAB PO SCH (10:09)
[2025-01-02] MEDS: amLODIPine BESYLATE 5 MG TAB PO SCH (10:11)
[2025-01-02 13:00] VITALS: BP 127/73; PULSE 62; RESP 17; TEMP 98; O2SAT 96
--- NOTE | 2025-01-02 13:01 | DVHPN2 ---
Subjective She has a uterine prolapse for about a year that is getting worse associated with the irritation and bleeding and she came for that Changes from previous H/P or p: Changes Eyes: No Pain, No Vision change, No Conjunctivae inflammation, No Eyelid inflammation, No Other, No Redness ENT: No Ear pain, No Ear discharge, No Nose pain, No Nose discharge, No Nose congestion, No Mouth pain, No Mouth swelling, No Throat pain, No Throat swelling, No Other Cardiovascular: No Chest Pain, No Palpitations, No Orthopnea, No Paroxysmal Noc. Dyspnea, No Edema, No Lt Headedness, No Other Respiratory: No Cough, No Dry, No Shortness of breath, No SOB with excertion, No Wheezing, No Hemoptysis, No Pleuritic Pain, No Sputum, No Other Gastrointestinal: No Nausea, No Vomiting, No Abdominal Pain, No Diarrhea, No Constipation, No Melena, No Hematochezia, No Other Genitourinary: No Dysuria, No Frequency, No Incontinence, No Hematuria, No Retention; Other (Pelvic pain, prolapsed uterus, vaginal bleeding) Musculoskeletal: No other, No neck pain, No shoulder pain, No arm pain, No back pain, No hand pain, No leg pain, No foot pain Skin: No Rash, No Lesions, No Jaundice, No Bruising, No Other Objective Vitals Vital Signs Date Time Temp Pulse Resp B/P (MAP) Pulse Ox O2 Delivery O2 Flow Rate FiO2 01/02/25 12:43 62 127/72 01/02/25 09:00 98.1 17 96 98.1 01/01/25 19:51 Room Air* 0 21 Intake/Output Intake and Output 01/02/25 07:00 Intake Total 600 ml Balance 600 ml Intake Oral 600 ml # Voids 3 General Appearance: Alert, Oriented X3, Cooperative Lungs: Clear to auscultation, Normal air movement Cardiovascular: Regular rate, Normal S1 Abdomen: Normal bowel sounds, Soft, No tenderness Extremities: No edema Medications Current Medications Medications Dose Ordered Sig/[place] Route Start Time Stop Time Status Last Admin Dose Admin Sodium Chloride 10 ml Q8HR IV 01/01/25 22:00 01/02/25 04:58 10 ML Acetaminophen/ Hydrocodone Bitart 1 tab Q4HP PRN PO 01/01/25 16:45 01/02/25 05:48 1 TAB Ondansetron HCl 4 mg Q4HP PRN IV 01/01/25 16:45 Docusate Sodium 100 mg BIDPRN PRN PO 01/01/25 16:45 Acetaminophen 650 mg Q6HP PRN PO 01/01/25 16:45 Amlodipine Besylate 5 mg DAILY PO 01/02/25 10:00 01/02/25 10:11 5 MG Folic Acid 1 mg DAILY PO 01/02/25 10:00 01/02/25 10:09 1 MG Gabapentin 300 mg TID PO 01/01/25 22:00 01/02/25 04:58 300 MG Metoprolol Tartrate 100 mg BID PO 01/01/25 22:00 01/02/25 10:11 100 MG Laboratory Results Laboratory Tests 01/02/25 04:35 Chemistry Test 01/01/25 18:03 01/02/25 04:35 Albumin 4.3 g/dL (3.2-4.8) 3.8 g/dL (3.2-4.8) Calcium Level 9.7 mg/dL (8.7-10.4) 9.2 mg/dL (8.7-10.4) Total Protein 7.1 g/dL (5.7-8.2) 6.3 g/dL (5.7-8.2) Coagulation Test 01/01/25 18:03 Prothrombin Time 10.0 sec (9.3-11.8) Prothrombin Time INR 0.94 (0.9-1.15) Activated Partial Thromboplast Time 27.4 SEC (24.5-34.5) LFT Test 01/01/25 18:03 01/02/25 04:35 Alanine Aminotransferase (ALT) 10 U/L (7-40) 10 U/L (7-40) Alkaline Phosphatase 73 U/L (46-116) 64 U/L (46-116) Aspartate Amino Transferase (AST) 12 U/L (13-40) L 11 U/L (13-40) L Total Bilirubin 0.4 mg/dL (0.2-1.0) 0.6 mg/dL (0.2-1.0) Urinalysis Test 01/01/25 14:52 Urine Color Light-brown (Yellow) Urine Clarity Ex.turbid (Clear) Urine pH 5.5 (5.0-9.0) Urine Specific [place] 1.026 (1.001-1.035) Urine Protein 1+ (Negative) H Urine Ketones Negative (Negative) Urine Blood 3+ /uL (Negative) H Urine Nitrite Negative (Negative) Urine Bilirubin Negative (Negative) Urine Urobilinogen Normal mg/dL (Negative) Urine Leukocyte Esterase 1+ /uL (Negative) Urine RBC 4761 /hpf (0 - 4) Urine Microscopic WBC 26 /HPF (0-5) H Urine Squamous Epithelial Cells Few /hpf (<5) Urine Bacteria None seen /hpf (None Seen) Urine Glucose Normal mg/dL (Normal) Assessment/Plan Assessment/Plan Uterine prolapse Anemia, microcytic, probably acute on chronic due to blood loss Acute kidney injury hemodynamically mediated HIV Hypertension History of CKD Hypotension Plan Start IV fluids normal saline Monitor the hemoglobin and transfuse as needed 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
[2025-01-02] MEDS: SODIUM CHLORIDE 0.9% 1,000 ML IV SCH (15:29)
[2025-01-02] MEDS: DOCUSATE SOD 100 MG CAP PO PRN (16:57)
[2025-01-02 17:00] VITALS: BP 135/85; PULSE 78; RESP 18; TEMP 98.5; O2SAT 97
--- NOTE | 2025-01-02 17:57 | DVHINCON2 ---
DATE OF CONSULTATION: 01/01/2025 REASON FOR CONSULTATION: * Uterine prolapse. * Pelvic pain. HISTORY OF PRESENT ILLNESS: The patient is a 49-year-old 0, para 0 with past medical history of HIV, chronic renal failure, hypertension, who was admitted for pain. The patient began having uterine prolapse approximately 8 months ago. The patient complains of pelvic pain. Her last Pap was 4 years ago. She is under care for HIV with her physician. PAST MEDICAL HISTORY: * Hypertension. * HIV. * Chronic renal disease. PAST SURGICAL HISTORY: * Back surgery. * Hip replacement x3. SOCIAL HISTORY: None. FAMILY HISTORY: Lives with family. OBSTETRIC AND GYNECOLOGIC HISTORY: Nulligravid. REVIEW OF SYSTEMS: CONSTITUTIONAL: No fever, chills, or weakness. RESPIRATORY: No cough or shortness of breath. CARDIOVASCULAR: No chest pain or palpitation. GASTROINTESTINAL: No nausea, vomiting, or abdominal pain. GENITOURINARY: No dysuria. No frequency. MUSCULOSKELETAL: No neck pain or joint pain. NEUROLOGICAL: No weakness or numbness. PHYSICAL EXAMINATION: VITAL SIGNS: Stable, afebrile. HEENT: Within normal limits. CARDIOVASCULAR: Regular rate and rhythm. LUNGS: Clear to auscultation. BREASTS: Symmetrical. No masses. ABDOMEN: Soft, nontender. PELVIC: Reveals second-degree uterine prolapse. Cervix not ulcerated. Uterus normal size. Adnexa nonpalpable. EXTREMITIES: No clubbing, cyanosis, or edema. IMPRESSION: * Second-degree uterine prolapse. * Morbid obesity. * Hypertension. * Hypertensive urgency. * Chronic renal failure. * Human immunodeficiency virus. RECOMMENDATION: The patient is high risk and needs to be up. If she desires to have any kind of operation, she needs to be at [facility] or [facility]. The patient also needs to have a Pap smear due to her existing HIV status. Recommend supportive care. We will sign off. Thank you very much for this consultation. DO PRISCILLA Gu TID: [id number] RECEIPT: [id number]
[2025-01-02 20:00] VITALS: PULSE 76; RESP 17; O2SAT 96
[2025-01-02 21:00] VITALS: BP 105/64; PULSE 76; RESP 17; TEMP 98.4; O2SAT 96
[2025-01-03 01:00] VITALS: BP 123/44; PULSE 76; RESP 18; TEMP 97.6; O2SAT 95
[2025-01-03 05:00] VITALS: BP 131/50; PULSE 75; RESP 18; TEMP 98.5; O2SAT 95
[2025-01-03 06:34] LABS: Basophils # (auto) 0 10 ^3/uL (0-0.2); Eosinophils # (auto) 0.3 10 ^3/uL (0-0.8); Lymphocytes # (auto) 1.2 10 ^3/uL (0.4-5.4); Monocytes # (auto) 0.7 10 ^3/uL (0-1.3); White Blood Cell 5.2 10^3/uL (4.4-10.8)
[2025-01-03 06:37] LABS: Basophils % (auto) 0.5 % (0.0-2.0); Eosinophils % (auto) 5.9 % (0.0-7.0); Hemoglobin 9.5 g/dL (12.2-16.2); Lymphocytes % (auto) 23.6 % (10.0-50.0); Mean Corpuscular Hemoglobin 23.6 pg (28.0-32.0); Mean Corpuscular Hgb Conc. 31.7 g/dL (32.0-36.0); Mean Corpuscular Volume 74.6 fL (80.0-100.0); Platelet Count (auto) 339 10^3/uL (140-450); Red Blood Cells 4.03 10^6/uL (4.0-5.20); Red Cell Distribution Width 17.9 % (11.8-14.3)
[2025-01-03 06:41] LABS: Albumin 3.7 g/dL (3.2-4.8); Alkaline Phosphatase 63 U/L (46-116); Anion Gap 7 (5-15); BUN/Creatinine Ratio 15.3 (10.0-20.0); Bilirubin, Total 0.5 mg/dL (0.2-1.0); Blood Urea Nitrogen 17 mg/dL (9-23); Calcium 9.3 mg/dL (8.7-10.4); Carbon Dioxide 27 mmol/L (20-31); Chloride 104 mmol/L (98-107); Glucose 97 mg/dL (74-106); Potassium 4.1 mmol/L (3.5-5.1); Sodium 138 mmol/L (136-145); Total Protein 6.2 g/dL (5.7-8.2)
[2025-01-03 06:51] LABS: Alanine Aminotransferase < 9 U/L (7-40); Aspartate Aminotransferase 10 U/L (13-40)
[2025-01-03 08:00] VITALS: PULSE 76; RESP 17; O2SAT 94
[2025-01-03 09:00] VITALS: BP 121/65; PULSE 76; RESP 17; TEMP 97.7; O2SAT 94
--- NOTE | 2025-01-03 10:57 | DVHDS2 ---
Discharge Summary Date of Admission Jan 01, 2025 at 16:44 Date of Discharge: Jan 03, 2025 Labs/Diagnostic Data: Laboratory Results Test 01/03/25 05:24 01/02/25 04:35 01/01/25 18:03 01/01/25 14:52 White Blood Count 5.2 10^3/uL (4.4-10.8) Red Blood Count 4.03 10^6/uL (4.0-5.20) Hemoglobin 9.5 g/dL (12.2-16.2) Hematocrit 30.0 % (36.0-46.0) Mean Corpuscular Volume 74.6 fL (80.0-100.0) Mean Corpuscular Hemoglobin 23.6 pg (28.0-32.0) Mean Corpuscular Hemoglobin Concent 31.7 g/dL (32.0-36.0) Red Cell Distribution Width 17.9 % (11.8-14.3) Platelet Count 339 10^3/uL (140-450) Mean Platelet Volume 8.2 fL (6.9-10.8) Neutrophils (%) (Auto) 57.0 % (37.0-80.0) Lymphocytes (%) (Auto) 23.6 % (10.0-50.0) Monocytes (%) (Auto) 13.0 % (0.0-12.0) Eosinophils (%) (Auto) 5.9 % (0.0-7.0) Basophils (%) (Auto) 0.5 % (0.0-2.0) Neutrophils # (Auto) 3.0 10 ^3/uL (1.6-8.6) Lymphocytes # (Auto) 1.2 10 ^3/uL (0.4-5.4) Monocytes # (Auto) 0.7 10 ^3/uL (0-1.3) Eosinophils # (Auto) 0.3 10 ^3/uL (0-0.8) Basophils # (Auto) 0 10 ^3/uL (0-0.2) Nucleated Red Blood Cells 0.0 % Sodium Level 138 mmol/L (136-145) Potassium Level 4.1 mmol/L (3.5-5.1) Chloride Level 104 mmol/L (98-107) Carbon Dioxide Level 27 mmol/L (20-31) Anion Gap 7 (5-15) Blood Urea Nitrogen 17 mg/dL (9-23) Creatinine 1.11 mg/dL (0.550-1.02) Glomerular Filtration Rate Calc 61 mL/min (>90) BUN/Creatinine Ratio 15.3 (10.0-20.0) Serum Glucose 97 mg/dL (74-106) Calcium Level 9.3 mg/dL (8.7-10.4) Magnesium Level 2.0 mg/dL (1.6-2.6) Total Bilirubin 0.5 mg/dL (0.2-1.0) Aspartate Amino Transferase (AST) 10 U/L (13-40) Alanine Aminotransferase (ALT) < 9 U/L (7-40) Alkaline Phosphatase 63 U/L (46-116) Total Protein 6.2 g/dL (5.7-8.2) Albumin 3.7 g/dL (3.2-4.8) Hepatitis B Surface Antigen Negative (Negative) Hepatitis C Antibody Negative (Negative) Prothrombin Time 10.0 sec (9.3-11.8) Prothrombin Time INR 0.94 (0.9-1.15) Activated Partial Thromboplast Time 27.4 SEC (24.5-34.5) Urine Color Light-brown (Yellow) Urine Clarity Ex.turbid (Clear) Urine pH 5.5 (5.0-9.0) Urine Specific [place] 1.026 (1.001-1.035) Urine Protein 1+ (Negative) Urine Ketones Negative (Negative) Urine Blood 3+ /uL (Negative) Urine Nitrite Negative (Negative) Urine Bilirubin Negative (Negative) Urine Urobilinogen Normal mg/dL (Negative) Urine Leukocyte Esterase 1+ /uL (Negative) Urine RBC 4761 /hpf (0 - 4) Urine Microscopic WBC 26 /HPF (0-5) Urine Squamous Epithelial Cells Few /hpf (<5) Urine Bacteria None seen /hpf (None Seen) Urine Glucose Normal mg/dL (Normal) Other Laboratory Tests 01/03/25 05:24 Brief Hx & Hospital Course: Final diagnoses: Uterine prolapse Anemia, microcytic, probably acute on chronic due to blood loss Acute kidney injury hemodynamically mediated HIV Hypertension History of CKD Hypotension UTI 49-year-old female who came for a chief complaint of uterine prolapse, she was evaluated by our body fitter service and was advised to be referred as an outpatient for body fitter consultation The patient was anemic her hemoglobin was 10.2, she says she is losing blood vaginally, her hemoglobin today is 9.5 The UA shows UTI with leukocyte esterase Because the patient had the problem for about a year, it is not an emergency, she can follow up as an outpatient, she needs to be referred to a tertiary surgical center such as [place] or [facility] I explained this to the patient and with the family at the bedside including her mother, they understand Discharge the patient on Macrobid for 7 days Follow up as an outpatient for a body fitter referral Resume other home medication Condition at Discharge: Stable Final Diagnosis/Problems List Uterine prolapse Anemia, microcytic, probably acute on chronic due to blood loss Acute kidney injury hemodynamically mediated HIV Hypertension History of CKD Hypotension UTI Discharge Disposition: Home SNF Discharge Will this Physician continue t: No Discharge Instruct/Medications Diet: Cardiac 2g Na,low cholest Activity: Light activity Follow Up/Referral: PCP [facility] 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 Patient was counseled about treatment plan, medications, possible side effects, patientverbalized understanding. All questions were answered to the best of my ability. This discharge took greater then 30 minutes in planning, reviewing documentation, counseling the patient, and discussing with other team members." ASSESSMENT ASSESSMENT Assessment Uterine prolapse Anemia, microcytic, probably acute on chronic due to blood loss Acute kidney injury hemodynamically mediated HIV Hypertension History of CKD Hypotension Date of Service: Jan 03, 2025 Billing Provider: KAYLI DAS MD Common Visit Codes: 00512-WAF/OBS DISCH DAY >30min KAYLI DAS MD Jan 03, 2025 10:57
[2025-01-03] MEDS ORDERED: NITR-87 PO (10:58)
[2025-01-03 13:00] VITALS: BP 143/91; PULSE 93; RESP 17; TEMP 97.9; O2SAT 97
== END 2025-01-03 13:20 | disposition home or self-care (01) | DRG 532 ==
LOC: ER 12:53 → OVERFLOW 16:44 → WEST WING 01-02 16:10
PROVIDERS: ADMIT Internal Medicine Geriatric Medicine; ATTEND Internal Medicine Geriatric Medicine
DX: N81.2 Incomplete uterovaginal prolapse (principal); N17.9 Acute kidney failure, unspecified; D62 Acute posthemorrhagic anemia; E66.01 Morbid (severe) obesity due to excess calories; I16.0 Hypertensive urgency; N18.9 Chronic kidney disease, unspecified; N39.0 Urinary tract infection, site not specified; I95.9 Hypotension, unspecified; I12.9 Hypertensive chronic kidney disease with stage 1 through stage 4 chronic kidney disease, or unspecified chronic kidney disease; Z68.42 Body mass index [BMI] 45.0-49.9, adult; Z79.899 Other long term (current) drug therapy; Z88.0 Allergy status to penicillin
CPT/HCPCS: 36415; 74176; 80053; 81001; 83735; 85025; 85610; 85730; 86803; 87340; G0378

== ENCOUNTER 2025-04-26 10:29 | Outpatient (CLI) | payer MEDICAID ==
[~2025-04-26 10:29] MED LIST changes: -LEVO500T91 PO; +NITR-87 PO
[2025-04-26 11:09] LABS: Basophils # (auto) 0 10 ^3/uL (0-0.2); Basophils % (auto) 0.6 % (0.0-2.0); Eosinophils # (auto) 0.3 10 ^3/uL (0-0.8); Lymphocytes # (auto) 1.3 10 ^3/uL (0.4-5.4); Monocytes # (auto) 0.7 10 ^3/uL (0-1.3)
[2025-04-26 11:12] LABS: Hematocrit 37.4 % (36.0-46.0); Hemoglobin 12.1 g/dL (12.2-16.2); Mean Corpuscular Hemoglobin 24.5 pg (28.0-32.0); Mean Corpuscular Hgb Conc. 32.4 g/dL (32.0-36.0); Mean Corpuscular Volume 75.7 fL (80.0-100.0); Monocytes % (auto) 10.2 % (0.0-12.0); Neutrophils # (auto) 4.4 10 ^3/uL (1.6-8.6); Neutrophils % (auto) 66.2 % (37.0-80.0); Platelet Count (auto) 306 10^3/uL (140-450); Red Blood Cells 4.94 10^6/uL (4.0-5.20); White Blood Cell 6.7 10^3/uL (4.4-10.8)
[2025-04-26 11:23] LABS: INR 0.94 (0.9-1.15); Partial Thromboplastin Time 26.7 SEC (24.5-34.5)
[2025-04-26 11:24] LABS: Urine Bacteria FEW /hpf (None Seen); Urine Blood Negative /uL (Negative); Urine Clarity Turbid (Clear); Urine Color Yellow (Yellow); Urine Mucus FEW (None Seen); Urine Protein, UAD Negative (Negative); Urine Squamous Epithelial Cell MOD /hpf (<5); Urine Urobilinogen Normal (Negative); Urine WBC < 1 /HPF (0-5); Urine pH 5.5 (5.0-9.0)
[2025-04-26 11:56] LABS: Alanine Aminotransferase 11 U/L (7-40); Albumin 4.4 g/dL (3.2-4.8); Alkaline Phosphatase 89 U/L (46-116); Anion Gap 5 (5-15); Aspartate Aminotransferase 14 U/L (0-34); BUN/Creatinine Ratio 9.1 (10.0-20.0); Blood Urea Nitrogen 10 mg/dL (9-23); Calcium 9.3 mg/dL (8.7-10.4); Carbon Dioxide 26 mmol/L (20-31); Chloride 107 mmol/L (98-107); Glucose 92 mg/dL (74-106); Magnesium 2.2 mg/dL (1.6-2.6); Potassium 4.3 mmol/L (3.5-5.1); Sodium 138 mmol/L (136-145); Total Protein 7.2 g/dL (5.7-8.2)
[2025-04-26 11:57] LABS: Bilirubin, Total 0.6 mg/dL (0.2-1.0)
[2025-04-26 15:06] LABS: Protein, Urine 25.5 mg/dL (1-14)
[2025-04-26 15:17] LABS: Urine Protein/Creatinine Ratio 0.09
[2025-04-26 15:20] LABS: Creatinine, Urine 270.12 mg/dL (30.0-125.0)
[2025-04-26 15:58] LABS: Triglycerides 72 mg/dL (< 150)
[2025-04-26 15:59] LABS: LDL Cholesterol 85 mg/dL (< 100)
[2025-04-26 16:00] LABS: Cholesterol 135 mg/dL (< 200)
[2025-04-26 16:01] LABS: HDL Cholesterol 39 mg/dL (40-59)
[2025-04-27 05:07] LABS: Baso (Absolute) 0.1 x10E3/uL (0.0-0.2); Basos 1 % (Not Estab.); Eos 4 % (Not Estab.); Eos (Absolute) 0.3 x10E3/uL (0.0-0.4); Hematocrit 38.9 % (34.0-46.6); Hemoglobin 12.1 g/dL (11.1-15.9); Immature Granulocytes (Abs) 0.1 x10E3/uL (0.0-0.1); Lymphs 21 % (Not Estab.); Lymphs (Absolute) 1.6 x10E3/uL (0.7-3.1); MCH 24.6 pg (26.6-33.0); MCHC 31.1 g/dL (31.5-35.7); MCV 79 fL (79-97); Monocytes 9 % (Not Estab.); Monocytes (Absolute) 0.7 x10E3/uL (0.1-0.9); Neutrophils 64 % (Not Estab.); Neutrophils (Absolute) 4.8 x10E3/uL (1.4-7.0); Platelets 334 x10E3/uL (150-450); RBC 4.91 x10E6/uL (3.77-5.28); RDW 16.7 % (11.7-15.4); WBC 7.4 x10E3/uL (3.4-10.8)
[2025-04-27 12:07] LABS: % CD 4 Pos Lymph 38.9 % (30.8-58.5); Absolute CD 4 Helper 622 /uL (359-1519); CD4/CD8 Ratio 1.39 (0.92-3.72)
[2025-04-28 08:07] LABS: HIV 1 Antibody Reactive (Non Reactive); HIV 2 Antibody Non Reactive (Non Reactive); INTERPRETATION HIV-1 Positive (.)
== END 2025-04-26 17:00 | disposition home or self-care (01) ==
LOC: LAB 10:29
PROVIDERS: ATTEND Internal Medicine
DX: Z13.6 Encounter for screening for cardiovascular disorders (principal); B20 Human immunodeficiency virus [HIV] disease; Z79.899 Other long term (current) drug therapy
CPT/HCPCS: 36415; 80053; 80061; 81001; 82306; 82570; 82607; 82728; 83036; 83735; 83880; 84156; 84443; 85025; 85610; 85730; 86360; 86703; 87389; 87536

== ENCOUNTER 2025-07-10 10:29 | Outpatient (CLI) | payer MEDICAID ==
[2025-07-10 11:39] LABS: Protein, Urine 7.1 mg/dL (1-14)
[2025-07-10 11:45] LABS: Alanine Aminotransferase 11 U/L (7-40); Alkaline Phosphatase 78 U/L (46-116); Anion Gap 8 (5-15); BUN/Creatinine Ratio 9.8 (10.0-20.0); Blood Urea Nitrogen 12 mg/dL (9-23); Calcium 9.8 mg/dL (8.7-10.4); Carbon Dioxide 27 mmol/L (20-31); Chloride 106 mmol/L (98-107); Glucose 87 mg/dL (74-106); Magnesium 2.1 mg/dL (1.6-2.6); Potassium 4.3 mmol/L (3.5-5.1); Sodium 141 mmol/L (136-145); Total Protein 6.9 g/dL (5.7-8.2); Triglycerides 85 mg/dL (< 150)
[2025-07-10 11:46] LABS: Albumin 4.5 g/dL (3.2-4.8); Cholesterol 119 mg/dL (< 200)
[2025-07-10 11:47] LABS: Bilirubin, Total 0.7 mg/dL (0.2-1.0); Iron 42.0 ug/dL (50-170); Total Iron Binding Capacity 238.0 ug/dL (250-425)
[2025-07-10 11:51] LABS: HDL Cholesterol 36 mg/dL (40-59)
[2025-07-10 12:17] LABS: Urine Protein, UAD Negative (Negative)
== END 2025-07-10 17:00 | disposition home or self-care (01) ==
LOC: LAB 10:29
PROVIDERS: ATTEND Licensed Practical Nurse
DX: B20 Human immunodeficiency virus [HIV] disease (principal); I13.0 Hypertensive heart and chronic kidney disease with heart failure and stage 1 through stage 4 chronic kidney disease, or unspecified chronic kidney disease; N18.30 Chronic kidney disease, stage 3 unspecified; I50.9 Heart failure, unspecified; E11.22 Type 2 diabetes mellitus with diabetic chronic kidney disease; E11.21 Type 2 diabetes mellitus with diabetic nephropathy; E78.5 Hyperlipidemia, unspecified; E55.9 Vitamin D deficiency, unspecified; Z13.1 Encounter for screening for diabetes mellitus; N39.0 Urinary tract infection, site not specified; R50.9 Fever, unspecified; E21.3 Hyperparathyroidism, unspecified; M10.9 Gout, unspecified; D63.1 Anemia in chronic kidney disease
CPT/HCPCS: 36415; 80053; 80061; 81001; 82043; 82306; 82570; 82728; 83036; 83540; 83550; 83735; 84100; 84156

== ENCOUNTER 2025-09-26 10:07 | Outpatient (CLI) | payer MEDICAID ==
[2025-09-26 10:31] LABS: Hematocrit 38.4 % (36.0-46.0); Hemoglobin 12.9 g/dL (12.2-16.2); Mean Corpuscular Hemoglobin 26.6 pg (28.0-32.0); Mean Corpuscular Volume 79.3 fL (80.0-100.0); Nucleated Red Blood Cells % 0.1 %
[2025-09-26 11:05] LABS: Alanine Aminotransferase 12 U/L (7-40); Albumin 4.1 g/dL (3.2-4.8); Alkaline Phosphatase 81 U/L (46-116); Anion Gap 9 (5-15); BUN/Creatinine Ratio 12.0 (10.0-20.0); Bilirubin, Total 0.6 mg/dL (0.2-1.0); Blood Urea Nitrogen 14 mg/dL (9-23); Calcium 9.5 mg/dL (8.7-10.4); Carbon Dioxide 28 mmol/L (20-31); Glucose 87 mg/dL (74-106); Potassium 4.5 mmol/L (3.5-5.1); Sodium 144 mmol/L (136-145); Total Protein 6.9 g/dL (5.7-8.2)
[2025-09-26 11:30] LABS: Chloride 107 mmol/L (98-107)
[2025-09-26 11:47] LABS: Uric Acid 6.0 mg/dL (3.1-7.8)
[2025-09-27 14:07] LABS: Anti-Nuclear Antibody Direct Negative (Negative)
== END 2025-09-26 17:00 | disposition home or self-care (01) ==
LOC: LAB 10:07
PROVIDERS: ATTEND Licensed Practical Nurse
DX: I10 Essential (primary) hypertension (principal); M24.111 Other articular cartilage disorders, right shoulder; G89.29 Other chronic pain
CPT/HCPCS: 36415; 80053; 84550; 85025; 85652; 86038; 86141; 86431

== ENCOUNTER 2025-10-10 07:34 | Outpatient (CLI) | payer MEDICAID ==
[2025-10-10 07:59] LABS: Mean Corpuscular Volume 80.0 fL (80.0-100.0)
[2025-10-10 08:01] LABS: Hematocrit 38.0 % (36.0-46.0); Hemoglobin 12.6 g/dL (12.2-16.2); Mean Corpuscular Hemoglobin 26.6 pg (28.0-32.0); Nucleated Red Blood Cells % 0.1 %
[2025-10-10 08:42] LABS: Alanine Aminotransferase 12 U/L (7-40); Albumin 4.3 g/dL (3.2-4.8); Alkaline Phosphatase 77 U/L (46-116); Anion Gap 10 (5-15); BUN/Creatinine Ratio 11.9 (10.0-20.0); Blood Urea Nitrogen 15 mg/dL (9-23); Calcium 9.5 mg/dL (8.7-10.4); Carbon Dioxide 27 mmol/L (20-31); Chloride 107 mmol/L (98-107); Potassium 4.2 mmol/L (3.5-5.1); Sodium 144 mmol/L (136-145); Total Protein 6.8 g/dL (5.7-8.2)
[2025-10-10 08:43] LABS: Bilirubin, Total 0.8 mg/dL (0.2-1.0); Glucose 72 mg/dL (74-106)
[2025-10-11 08:07] LABS: Hematocrit 38.4 % (34.0-46.6); Hemoglobin 12.6 g/dL (11.1-15.9); MCH 27.2 pg (26.6-33.0); MCHC 32.8 g/dL (31.5-35.7); MCV 83 fL (79-97); RBC 4.63 x10E6/uL (3.77-5.28); RDW 15.2 % (11.7-15.4); WBC 4.2 x10E3/uL (3.4-10.8)
[2025-10-11 09:07] LABS: CD4/CD8 Ratio 1.41 (0.92-3.72); Free Thyroxine Index 2.7 (1.2-4.9)
== END 2025-10-10 17:00 | disposition home or self-care (01) ==
LOC: LAB 07:34
PROVIDERS: ATTEND Specialist
DX: N18.31 Chronic kidney disease, stage 3a (principal); Z79.899 Other long term (current) drug therapy
CPT/HCPCS: 36415; 80053; 84443; 85025; 86360; 87536

== ENCOUNTER 2025-10-29 06:47 | Day surgery (SDC) | payer MEDICAID ==
[2025-10-24 12:18] LABS: Hemoglobin 12.6 g/dL (12.2-16.2)
[2025-10-24 12:19] LABS: Hematocrit 38.4 % (36.0-46.0); Mean Corpuscular Hemoglobin 26.2 pg (28.0-32.0); Mean Corpuscular Volume 80.2 fL (80.0-100.0); Nucleated Red Blood Cells % 0.1 %
[2025-10-24 12:20] LABS: Urine Protein, UAD Negative (Negative)
[2025-10-24 12:35] LABS: INR 0.93 (0.9-1.15); Partial Thromboplastin Time 27.3 SEC (24.5-34.5); Prothrombin Time 9.9 sec (9.3-11.8)
[2025-10-24 13:05] LABS: Alanine Aminotransferase 14 U/L (7-40); Albumin 4.5 g/dL (3.2-4.8); Alkaline Phosphatase 78 U/L (46-116); Anion Gap 8 (5-15); BUN/Creatinine Ratio 9.6 (10.0-20.0); Bilirubin, Total 0.8 mg/dL (0.2-1.0); Blood Urea Nitrogen 12 mg/dL (9-23); Calcium 9.9 mg/dL (8.7-10.4); Carbon Dioxide 29 mmol/L (20-31); Chloride 104 mmol/L (98-107); Glucose 88 mg/dL (74-106); Potassium 4.2 mmol/L (3.5-5.1); Sodium 141 mmol/L (136-145); Total Protein 7.1 g/dL (5.7-8.2)
[~2025-10-29] VITALS: Ht 165.1 cm; Wt 103.0 kg
[2025-10-29] VITALS (7 sets, daily range): BP systolic 161; BP diastolic 81; PULSE 61–96; RESP 12–13; TEMP 97.7; O2SAT 99
[~2025-10-29 06:47] MED LIST changes: +ACET-1304 PO; +CHOL50007 PO; +IRONCAP19 OR; +METH-1181 PO; -NITR-87 PO; +PANT40T PO; +TIRZ7.5I2 SC; -[UNRECOGNIZED DRUG - CODE] PO
[2025-10-29] MEDS ORDERED: ROPIVACAINE 0.5% (5MG/ML) 20ML AMPULE IJ ONE ×2 (09:30→10:03)
[2025-10-29] MEDS ORDERED: GLYCOPYRROLATE 0.2 MG/ML 1ML VIAL ONE (10:06)
[2025-10-29] MEDS ORDERED: KETOROLAC TROMETH 30 MG/ML 1ML VIAL ONE (10:06)
[2025-10-29] MEDS ORDERED: fentaNYL CITRATE 100 MCG/2 ML VL ONE (10:06)
[2025-10-29] MEDS ORDERED: ROCURONIUM 10MG/ML 10ML VIAL IV ONE (10:06)
[2025-10-29] MEDS ORDERED: KETAMINE 50mg/ML 1ml syringe ONE (10:06)
[2025-10-29] MEDS ORDERED: ONDANSETRON HCL 4 MG/2 ML VIAL ONE (10:06)
[2025-10-29] MEDS ORDERED: PROPOFOL 10 MG/ML 20 ML IV ONE (10:06)
[2025-10-29] MEDS ORDERED: MIDAZOLAM HCL 2MG/2ML 2ml VIAL (1mg/ml) ONE (10:06)
[2025-10-29] MEDS ORDERED: LIDOCAINE 2% (LOCAL ANESTH.) PF 5ml SDV ONE (10:06)
[2025-10-29] MEDS: ceFAZolin 2 GM/D5W50ml 50 ML IV ONE (10:30)
[2025-10-29] MEDS ORDERED: HYDROmorphone HCL 2 MG/ML VL/or syr ONE (11:04)
[2025-10-29] MEDS ORDERED: TRIAMCINOLONE 40MG/ML 1ML VIAL ONE (11:12)
[2025-10-29] MEDS ORDERED: SUGAMMADEX 200mg/2ml Vial (100MG/ML) IV ONE (11:40)
[2025-10-29] MEDS ORDERED: ACETAMINOPHEN IV 100 ML IV ONE (12:07)
--- NOTE | 2025-10-29 12:08 | DVHNC2 ---
Procedure - Right interscalene blocked performed for the purpose of post-operative analgesia after right shoulder arthroscopy. Informed consent obtained pre-op. Block performed in the operating room pre-induction. Time out done. Sterile prep and drape. Skin infiltrated with 1% lido. 2" 22G nerve stimulating needle placed. Deltoid twitch to 0.5 mAmps. 20cc 0.5% ropivacaine incrementally injected with no heme or paresthesia. Patient tolerated well. Will follow as needed. DG FORD MD Oct 29, 2025 12:08
[2025-10-29] MEDS ORDERED: ONDANSETRON HCL 4 MG/2 ML VIAL IV PRN (12:15)
--- NOTE | 2025-10-29 12:22 | DVHOP2 ---
Discharge Orders Discharge Orders DISCHARGE WHEN CRITERIA MET DISCHARGE WHEN CRITERIA MET. Operative Rep- Outpatient Operative Report PRE-OP DIAGNOSIS: Right shoulder rotator cuff tear Right shoulder biceps tendinitis Right shoulder AC joint arthritis Right shoulder subacromial impingement Right subscapularis tendon tear POST-OP DIAGNOSIS: Same [place] protocol followed: Yes ESTIMATED BLOOD LOSS: 20 cc PROCEDURE: Right shoulder arthroscopic rotator cuff repair Right shoulder arthroscopic subacromial decompression acromioplasty Right shoulder arthroscopic capsulorrhaphy with humeral side advancement of the subscapularis tendon Right shoulder arthroscopic distal clavicle resection coplaning technique once cm Right shoulder arthroscopic biceps tenodesis SURGEON/AUTO ENGINE MECHANIC: Thad Grimaldo ANESTHESIA: General ANESTHESIOLOGIST: INFORMED CONSENT: Informed Consent: Discussed all inherent risks, complications, and alternatives treatments with the patient. Patient has agreed to proceed with the procedure. I have reviewed all pre-operative assessments including Labs, EKGs, and radiographic images that has been performed. Patient is an appropriate candidate for the outpatient surgical center procedure. The patient understood the risks and benefits of surgical and nonsurgical treatment of the right upper extremity she understood the risks with a full- thickness rotator cuff tear based on these parameters the patient is educated on the risks and benefits of surgical and nonsurgical treatment based on these parameters the patient is seen in the preoperative holding of the right upper extremity was marked the patient was brought to operative suite general anesthesia was then induced time-out was hospital protocol the left upper extremity was prepped and draped in the standard fashion Ancef was given for infection prophylaxis TXA was given for bleeding prophylaxis the right upper extremity was prepped and draped standard fashion a posterior portal was made in the anterior portal was made under direct visualization of the glenohumeral joint was then visualized once I was then done of the patient was noted to have grade 3 grade 4 changes of the humeral head the patient has a upper border subscapularis tendon tear along with the biceps tendon hourglass deformity of the SLAP tendon once I was then done in the appropriate manner I decorticated the lesser tuberosity once I was then done the biceps tendon was tagged and then decorticated and released once it was released in the appropriate manner of the biceps tendon was then tagged and then with the upper border subscapularis tendon was also tagged was placed into a 475 osteo anchor for a capsulorrhaphy with the humeral side advancement of the subscapularis tendon laterally with the arthroscopic biceps tenodesis once it was then done with a punched in the appropriate manner with an arthroscopic biceps tenodesis in the appropriate ma nner that was then done in the appropriate manner with a tenodesis of the the rotator cuff was then marked with a PDS suture of the glenohumeral joint was noted to have grade 2 changes on the glenoid and grade 4 changes with the humeral head lesion that was noted once it was then done the subscapularis tendon the self decompression subacromial decompression and acromioplasty with a n RF Wand and shaver was then completed a distal clavicle resection coplaning technique with 1 cm with a closure plating technique with a distal clavicle resection was then completed in the appropriate manner once it was then done in the appropriate manner of the greater tuberosity was decorticated followed by 2.9 mm all suture anchor was then brought medially and then I tied to a lateral 475 osteo anchor the rotator cuff was repaired in the appropriate manner the patient will be in a gunslinger brace for 4 weeks time the patient will then work with physical therapy and DC the gunslinger brace and work on range of motion for 4 weeks to 12 weeks and then work on strength of the 12 week ester. THAD DENSON MD Oct 29, 2025 12:22
[2025-10-29] MEDS: ACETAMINOPHEN IV 1000 MG/100ML (10MG/ML) IV ONE (12:23)
[2025-10-29] MEDS: HYDROmorphone HCL 2 MG/ML VL/or syr IV PRN (12:29)
== END 2025-10-29 13:47 | disposition home or self-care (01) ==
LOC: SUR 06:47
PROVIDERS: ATTEND Orthopaedic Surgery
DX: M75.101 Unspecified rotator cuff tear or rupture of right shoulder, not specified as traumatic (principal); M19.011 Primary osteoarthritis, right shoulder; M25.811 Other specified joint disorders, right shoulder; M75.21 Bicipital tendinitis, right shoulder; G89.18 Other acute postprocedural pain; I12.9 Hypertensive chronic kidney disease with stage 1 through stage 4 chronic kidney disease, or unspecified chronic kidney disease; N18.30 Chronic kidney disease, stage 3 unspecified; K21.9 Gastro-esophageal reflux disease without esophagitis; Z21 Asymptomatic human immunodeficiency virus [HIV] infection status; Z79.899 Other long term (current) drug therapy; Z86.2 Personal history of diseases of the blood and blood-forming organs and certain disorders involving the immune mechanism
CPT/HCPCS: 29824; 29826; 29827; 29828; 36415; 64415; 80053; 81001; 81025; 85025; 85610; 85730; C1713; J0169; J0690; J1100; J1171; J1885; J2003; J2250; J2405; J2704; J2795; J3010; J3301; A4565; J0131

== ENCOUNTER 2025-11-12 11:18 | Outpatient (CLI) | payer MEDICAID ==
[2025-11-12 11:52] LABS: Nucleated Red Blood Cells % 0.2 %
[2025-11-12 11:55] LABS: Hematocrit 43.4 % (36.0-46.0); Hemoglobin 14.1 g/dL (12.2-16.2); Mean Corpuscular Hemoglobin 26.9 pg (28.0-32.0); Mean Corpuscular Volume 82.7 fL (80.0-100.0)
[2025-11-12 12:11] LABS: Alanine Aminotransferase 11 U/L (7-40); Albumin 4.7 g/dL (3.2-4.8); Alkaline Phosphatase 101 U/L (46-116); Anion Gap 12 (5-15); BUN/Creatinine Ratio 9.4 (10.0-20.0); Blood Urea Nitrogen 13 mg/dL (9-23); Calcium 10.1 mg/dL (8.7-10.4); Carbon Dioxide 27 mmol/L (20-31); Chloride 105 mmol/L (98-107); Glucose 88 mg/dL (74-106); Potassium 4.2 mmol/L (3.5-5.1); Sodium 144 mmol/L (136-145); Total Protein 7.3 g/dL (5.7-8.2)
[2025-11-12 12:12] LABS: Bilirubin, Total 0.8 mg/dL (0.2-1.0)
== END 2025-11-12 17:00 | disposition home or self-care (01) ==
LOC: LAB 11:18
PROVIDERS: ATTEND Licensed Practical Nurse
DX: I10 Essential (primary) hypertension (principal); E55.9 Vitamin D deficiency, unspecified
CPT/HCPCS: 36415; 80053; 82306; 85025